=== PATIENT | female | born 1975 | race Caucasian/White ===

== ENCOUNTER 2016-06-26 11:38 | Emergency (ER) | payer BC ==
[~2016-06-26] VITALS: Ht 167.6 cm; Wt 83.9 kg
[~2016-06-26 11:38] MED LIST: DOCU10CA PO; IBUP800T23 PO; IBUP80TA PO; LABE20TAB PO; MOM30SS PO; PERC5TAB6 PO; PERCOCET PO; VITAPRTA PO
[2016-06-26] MEDS ORDERED: PROP60CA (12:00)
[2016-06-26] MEDS ORDERED: [UNRECOGNIZED DRUG - OTHER] PO (12:00)
[2016-06-26] MEDS ORDERED: GABAPENTIN 300 MG CAP PO ONE (12:30)
--- NOTE | 2016-06-26 13:25 | REP ---
RIGHT KNEE, FIVE VIEWS: HISTORY: Pain. There is no acute fracture or dislocation. The joint spaces are normal in appearance. IMPRESSION: There is no acute fracture or dislocation. Signed by Yuan Quiles MD 06/26/2016 01:30 P
[2016-06-26] MEDS ORDERED: NEUR300C PO (13:26)
[2016-06-26 13:39] VITALS: BP 119/73
== END 2016-06-26 13:46 | disposition home or self-care (01) ==
LOC: M ED 12:28
DX: M25.561 Pain in right knee (principal); G62.9 Polyneuropathy, unspecified; I10 Essential (primary) hypertension; M79.7 Fibromyalgia; Z79.899 Other long term (current) drug therapy

== ENCOUNTER → 2016-06-30 | Outpatient (REF) | payer BC ==
[~2016-06-30] MED LIST changes: +NEUR300C PO; +PROP60CA; +[UNRECOGNIZED DRUG - OTHER] PO
== END ==
LOC: M LAB REF 16:24
PROVIDERS: ATTEND Nurse Practitioner Family
DX: M79.7 Fibromyalgia (principal)

== ENCOUNTER 2016-09-13 18:21 | Emergency (ER) | payer BC ==
[~2016-09-13] VITALS: Ht 167.6 cm; Wt 84.0 kg
[~2016-09-13 18:21] MED LIST changes: +IBUP1TAB7 PO; -IBUP800T23 PO; +PERC5TAB12 PO; -PERC5TAB6 PO
[2016-09-13] MEDS ORDERED: HYDR200T3 (18:26)
[2016-09-13] MEDS ORDERED: methylPREDNISolone INJ 125 MG/2 ML VIAL (J2930) IV ONE (19:45)
[2016-09-13] MEDS ORDERED: ONDANSETRON 4MG/2ML VIAL (J2405) IV ONE (19:45)
[2016-09-13] MEDS ORDERED: MORPHINE 4 MG/ML 1ML SYRINGE IV ONE (19:45)
[2016-09-13 20:25] LABS: BASO # 0.1 K/mm3 (0.0-0.2); BASO % 0.5 % (0.0-1.0); EOS # 0.5 K/mm3 (0.0-0.50); EOS % 3.9 % (0.0-3.0); LARGE UNSTAINED CELL # 0.2 K/mm3 (0.0-0.4); LARGE UNSTAINED CELL % 1.9 % (0.0-4.0); LYMPH # 4.5 K/mm3 (1.5-4.5); MEAN CORPUSCULAR HEMOGLOBIN 30.8 pg (27.0-33.0); MEAN CORPUSCULAR HGB CONC 34.9 g/dl (32.0-36.5); MEAN CORPUSCULAR VOLUME 88.2 fl (80.0-96.0); MONO # 0.5 K/mm3 (0.0-0.8); MONO % 4.4 % (0.0-5.0); NEUTROPHILS # 6.4 K/mm3 (1.8-7.7); NEUTROPHILS % 53.3 % (36.0-66.0); PLATELET COUNT, AUTOMATED 234 k/mm3 (150-450); RED CELL DISTRIBUTION WIDTH 12.8 % (11.5-14.5)
[2016-09-13 20:38] LABS: ALBUMIN 3.8 GM/DL (3.2-5.2); ALBUMIN/GLOBULIN RATIO 1.27 (1.00-1.93); ALKALINE PHOSPHATASE 80 U/L (45-117); ALT/SGPT 16 U/L (12-78); AMYLASE 56 U/L (25-115); ANION GAP 7 MEQ/L (8-16); AST/SGOT 13 U/L (15-37); BILIRUBIN,TOTAL 0.3 MG/DL (0.2-1.0); BLOOD UREA NITROGEN 11 MG/DL (7-18); CALCIUM LEVEL 9.2 MG/DL (8.5-10.1); CARBON DIOXIDE LEVEL 25 MEQ/L (21-32); CHLORIDE LEVEL 107 MEQ/L (98-107); CREATININE FOR GFR 0.76 MG/DL (0.55-1.02); GLOMERULAR FILTRATION RATE > 60.0 (>60); GLUCOSE, FASTING 83 MG/DL (70-105); POTASSIUM SERUM 3.7 MEQ/L (3.5-5.1); SODIUM LEVEL 139 MEQ/L (136-145); TOTAL PROTEIN 6.8 GM/DL (6.4-8.2)
--- NOTE | 2016-09-13 21:20 | REPUSA ---
CLINICAL HISTORY: Epigastric pain. TECHNIQUE: Ultrasound of the abdomen was performed. ULTRASOUND ABDOMEN: Liver: No intrahepatic ductal dilation. Gallbladder: Cholecystectomy. Common bile duct: 7 mm which is within normal limits for a patient status post cholecystectomy. Pancreas: Poorly visualized due to overlying bowel gas. No pancreatic duct dilation. Spleen: Normal 10.5 cm length. Small calcified granulomas. Right kidney: 12.2 x 4.0 x 5.2 cm, with cortical thinning and mild pelviectasis. No stones or signifi cant hydronephrosis. Left kidney: 12.0 x 4.4 x 4.1 cm, with cortical thinning. No stones or hydronephrosis. Aorta: Normal caliber. Peritoneum: No free fluid. IMPRESSION: 1. Bilateral renal cortical thinning suggests chronic renal insufficiency. 2. Minimal right renal pelviectasis without suraj hydronephrosis. 3. Status post cholecystectomy, with minimal prominence of the common bile duct, within normal limits . 4. No discrete findings to explain epigastric pain.
[2016-09-13] MEDS ORDERED: NORCO, ANEXSIA 5/325MG TABLET (HYDROcodone/ACETAMINOPHEN) PO ONE (22:00)
[2016-09-13] MEDS ORDERED: MOBI15TA PO (22:04)
[2016-09-13] MEDS ORDERED: NORCOTAB PO (22:04)
[2016-09-13 22:08] VITALS: BP 133/77
--- NOTE | 2016-09-14 07:21 | REP ---
PA and lateral chest: Comparison is 12/17/2015. The lung henley are clear. The cardiac size is normal The foreign, mediastinum, and bony thorax are unremarkable. Impression: Negative PA and lateral chest. There is no interval change. Signed by Roberto Ferrera MD 09/14/2016 07:13 A
== END 2016-09-13 22:24 | disposition home or self-care (01) ==
LOC: M ED 18:21
DX: M54.9 Dorsalgia, unspecified (principal); M79.7 Fibromyalgia; M32.9 Systemic lupus erythematosus, unspecified; I10 Essential (primary) hypertension; Z79.899 Other long term (current) drug therapy
CPT/HCPCS: 71020; 76700; 80053; 81001; 82150; 83690; 85025; 86140; 87086; 96374; 96375; 99283; J2405; J2930

== ENCOUNTER 2016-09-20 13:35 | Emergency (ER) | payer BC ==
[~2016-09-20] VITALS: Ht 167.6 cm; Wt 185.0 kg
[~2016-09-20 13:35] MED LIST changes: +HYDR200T3; +MOBI15TA PO; +NORCOTAB PO
[2016-09-20] MEDS ORDERED: KETOROLAC 60 MG/2 ML VIAL (J1885) IM ONE (15:30)
[2016-09-20] MEDS ORDERED: ONDANSETRON 4 MG ORAL DISINTEGRATING TAB (S0181) PO ONE (15:30)
[2016-09-20] MEDS ORDERED: VALI5TAB PO (15:53)
[2016-09-20] MEDS ORDERED: IBUP80TA PO (15:53)
[2016-09-20 16:02] VITALS: BP 149/87
== END 2016-09-20 16:02 | disposition home or self-care (01) ==
LOC: M ED 13:35
DX: S29.012A Strain of muscle and tendon of back wall of thorax, initial encounter (principal); X58.XXXA Exposure to other specified factors, initial encounter; Y92.9 Unspecified place or not applicable; Y93.9 Activity, unspecified; Y99.8 Other external cause status; M79.7 Fibromyalgia; M32.9 Systemic lupus erythematosus, unspecified; I10 Essential (primary) hypertension; Z79.899 Other long term (current) drug therapy; Z90.79 Acquired absence of other genital organ(s); Z90.49 Acquired absence of other specified parts of digestive tract; Z90.89 Acquired absence of other organs
CPT/HCPCS: 96372; 99282; J1885; J3360

== ENCOUNTER → 2016-10-16 | Outpatient (REF) | payer BC ==
[~2016-10-16] MED LIST changes: +VALI5TAB PO
[2016-10-16 19:14] LABS: MEAN CORPUSCULAR HEMOGLOBIN 30.5 pg (27.0-33.0); MEAN CORPUSCULAR HGB CONC 34.3 g/dl (32.0-36.5); RED CELL DISTRIBUTION WIDTH 12.4 % (11.5-14.5)
[2016-10-16 20:35] LABS: ESTRADIOL 72.1 PG/ML
[2016-10-16 20:36] LABS: ALBUMIN 3.7 GM/DL (3.2-5.2); ALBUMIN/GLOBULIN RATIO 1.09 (1.00-1.93); ALKALINE PHOSPHATASE 88 U/L (45-117); ALT/SGPT 17 U/L (12-78); ANION GAP 9 MEQ/L (8-16); AST/SGOT 14 U/L (15-37); BILIRUBIN,TOTAL 0.3 MG/DL (0.2-1.0); BLOOD UREA NITROGEN 9 MG/DL (7-18); CALCIUM LEVEL 9.1 MG/DL (8.5-10.1); CARBON DIOXIDE LEVEL 26 MEQ/L (21-32); CHLORIDE LEVEL 109 MEQ/L (98-107); CREATININE FOR GFR 0.87 MG/DL (0.55-1.02); FOLLICLE STIMULATING HORMONE 6.1 mIU/mL; FREE T4 1.16 NG/DL (0.76-1.46); GLOMERULAR FILTRATION RATE > 60.0 (>60); GLUCOSE, FASTING 71 MG/DL (70-105); POTASSIUM SERUM 4.2 MEQ/L (3.5-5.1); SODIUM LEVEL 144 MEQ/L (136-145); TOTAL PROTEIN 7.1 GM/DL (6.4-8.2)
[2016-10-19 14:13] LABS: ESTRONE SERUM 85 pg/mL (.); SEX HORMONE BINDING GLOBULIN 107.9 nmol/L (24.6-122.0)
== END ==
LOC: M LAB REF 17:56
PROVIDERS: ATTEND Obstetrics & Gynecology
DX: N95.9 Unspecified menopausal and perimenopausal disorder (principal)

== ENCOUNTER → 2016-12-18 | Outpatient (REF) | payer BC | LOC: M LAB REF 13:07 | PROVIDERS: ATTEND Nurse Practitioner Family | DX: R50.9 Fever, unspecified (principal); J02.9 Acute pharyngitis, unspecified ==

== ENCOUNTER 2017-09-30 13:21 | Day surgery (SDC) | payer BC ==
[2017-09-30 13:58] LABS: BASO % 0.2 % (0.0-1.0); EOS % 0.2 % (0.0-3.0); HEMOGLOBIN 13.8 g/dl (12.0-15.5); IMMATURE GRANULOCYTE % 0.4 % (0-3.0); LYMPH # 1.7 10^3/uL (1.5-4.5); LYMPH % 10.4 % (24.0-44.0); MEAN CORPUSCULAR HEMOGLOBIN 29.7 pg (27.0-33.0); MEAN CORPUSCULAR HGB CONC 34.5 g/dl (32.0-36.5); MEAN CORPUSCULAR VOLUME 86.2 fl (80.0-96.0); MONO # 0.8 10^3/uL (0.0-0.8); MONO % 4.8 % (0.0-5.0); NEUTROPHILS # 14.1 10^3/uL (1.8-7.7); PLATELET COUNT, AUTOMATED 271 10^3/uL (150-450); RED BLOOD COUNT 4.64 10^6/uL (4.00-5.40); RED CELL DISTRIBUTION WIDTH 12.7 % (11.5-14.5); WHITE BLOOD COUNT 16.8 10^3/uL (4.0-10.0)
[2017-09-30] MEDS: MORPHINE 4 MG/ML 1ML VIAL/SYRINGE (J2270) IV ×3 (13:59→22:30)
[2017-09-30] MEDS: ONDANSETRON 4MG/2ML VIAL (J2405) IV (13:59)
[2017-09-30] MEDS: NS 1,000 ML IV (14:00)
[2017-09-30 14:16] LABS: ALBUMIN 3.9 GM/DL (3.2-5.2); ALBUMIN/GLOBULIN RATIO 1.08 (1.00-1.93); ALKALINE PHOSPHATASE 96 U/L (45-117); ALT/SGPT 24 U/L (12-78); ANION GAP 10 MEQ/L (8-16); AST/SGOT 21 U/L (7-37); BILIRUBIN,TOTAL 0.5 MG/DL (0.2-1.0); BLOOD UREA NITROGEN 12 MG/DL (7-18); CALCIUM LEVEL 8.6 MG/DL (8.5-10.1); CARBON DIOXIDE LEVEL 22 MEQ/L (21-32); CHLORIDE LEVEL 109 MEQ/L (98-107); CREATININE FOR GFR 0.79 MG/DL (0.55-1.30); GLOMERULAR FILTRATION RATE > 60.0 (>58); GLUCOSE, FASTING 67 MG/DL (70-100); SODIUM LEVEL 141 MEQ/L (136-145); TOTAL PROTEIN 7.5 GM/DL (6.4-8.2)
[2017-09-30] MEDS: D5W/0.45% SODIUM CHLORIDE 1,000 ML IV (14:37)
[2017-09-30] MEDS: LORazepam 2 MG/ML VIAL (J2060) IV (14:37)
[2017-09-30] MEDS ORDERED: LIDOCAINE 2% INJ 100 MG/5 ML SDV (FOR ANES.) As Ordered (15:45)
[2017-09-30] MEDS ORDERED: PROPOFOL 200 MG/20 ML VIAL As Ordered ×4 (15:45→18:45)
[2017-09-30] MEDS ORDERED: fentaNYL 100 MCG/2 ML INJECTION (J3010) As Ordered ×2 (15:46→18:57)
[2017-09-30] MEDS ORDERED: MIDAZOLAM INJ 2 MG/2 ML VIAL (J2250) As Ordered ×2 (15:46→18:56)
[2017-09-30] MEDS ORDERED: ceFAZolin 2 GM/D5W 50 ML IV BAG (J0690 PER 500MG) As Ordered (16:09)
[2017-09-30] MEDS: ceFAZolin 2 GM/D5W 50 ML IV BAG (J0690 PER 500MG) IV (16:16)
[2017-09-30] MEDS ORDERED: BUPIVACAINE/DEXTROSE 0.75% 2 ML AMP As Ordered (16:19)
[2017-09-30] MEDS ORDERED: ePHEDrine SULFATE 25 MG/5 ML(5MG/ML) SYRINGE As Ordered (16:46)
[2017-09-30] MEDS ORDERED: ONDANSETRON 4MG/2ML VIAL (J2405) As Ordered (18:58)
[2017-09-30] MEDS ORDERED: KETOROLAC 60 MG/2 ML VIAL (J1885) As Ordered (18:58)
[2017-09-30] MEDS ORDERED: MORPHINE 10 MG/ML 1ML VIAL (J2270) IV (20:30)
[2017-09-30] MEDS ORDERED: ONDANSETRON 4MG/2ML VIAL (J2405) IV (20:30)
[2017-09-30] MEDS ORDERED: fentaNYL 100 MCG/2 ML INJECTION (J3010) IV (20:30)
[2017-09-30] MEDS ORDERED: NORCO, ANEXSIA 5/325MG TABLET (HYDROcodone/ACETAMINOPHEN) PO (20:45)
[2017-09-30] MEDS: NORCO, ANEXSIA 5/325MG TABLET (HYDROcodone/ACETAMINOPHEN) PO (21:40)
[2017-09-30] MEDS: LR 1,000 ML IV (21:44)
[2017-10-01] MEDS: NORCO, ANEXSIA 5/325MG TABLET (HYDROcodone/ACETAMINOPHEN) PO ×5 (01:49→22:17)
[2017-10-01] MEDS: MORPHINE 4 MG/ML 1ML VIAL/SYRINGE (J2270) IV ×6 (03:27→21:09)
[2017-10-01] MEDS: LR 1,000 ML IV (03:28)
[2017-10-01] MEDS: ASPIRIN 325 MG TAB PO (08:14)
[2017-10-01] MEDS ORDERED: ASPIRIN 325 MG TAB NG (09:00)
[2017-10-01] MEDS: PROPRANOLOL 60 MG LA CAP PO (09:00)
[2017-10-01] MEDS: ESCITALOPRAM OXALATE 5MG TABLET (LEXAPRO) PO (10:25)
[2017-10-02] MEDS: MORPHINE 4 MG/ML 1ML VIAL/SYRINGE (J2270) IV (01:51)
[2017-10-02] MEDS: NORCO, ANEXSIA 5/325MG TABLET (HYDROcodone/ACETAMINOPHEN) PO ×2 (05:36→10:49)
[2017-10-02] MEDS: ESCITALOPRAM OXALATE 5MG TABLET (LEXAPRO) PO (08:57)
[2017-10-02] MEDS: ASPIRIN 325 MG TAB PO (08:57)
[2017-10-02] MEDS: PROPRANOLOL 60 MG LA CAP PO (08:58)
[2017-10-02] MEDS: MORPHINE 15 MG SA TAB PO (08:58)
== END 2017-10-02 12:35 | disposition home or self-care (01) ==
LOC: M ED 13:21 → M SDC 10-01 07:59 → M MS5PR 10-01 08:00 → M SDC 10-02 12:35 → M MS5PR 20:55
DX: S82.854A Nondisplaced trimalleolar fracture of right lower leg, initial encounter for closed fracture (principal); X50.0XXA Overexertion from strenuous movement or load, initial encounter; Y92.099 Unspecified place in other non-institutional residence as the place of occurrence of the external cause; Y93.41 Activity, dancing; Y99.8 Other external cause status; M79.7 Fibromyalgia; I10 Essential (primary) hypertension; F41.9 Anxiety disorder, unspecified; M32.10 Systemic lupus erythematosus, organ or system involvement unspecified; Z79.899 Other long term (current) drug therapy
CPT/HCPCS: 27828

== ENCOUNTER → 2017-09-30 | Outpatient (CLI) | payer BC | LOC: M WUC 11:55 | DX: S93.401A Sprain of unspecified ligament of right ankle, initial encounter (principal); S93.601A Unspecified sprain of right foot, initial encounter; W18.30XA Fall on same level, unspecified, initial encounter; Y92.009 Unspecified place in unspecified non-institutional (private) residence as the place of occurrence of the external cause | CPT/HCPCS: 73590 ==

== ENCOUNTER → 2018-04-29 | Outpatient (CLI) | payer BC ==
[~2018-04-29] MED LIST changes: +ASPI-222 PO; +ESCI10TA2 PO; +FINA15GE TOP; +HYDR-3713 PO; -HYDR200T3; +HYDR200T3 PO; +MS C15TA8 PO; -PROP60CA; +PROP60CA PO
--- NOTE | 2018-04-29 14:39 | ECGEPIP ---
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 Order Number: [id number] Reading MD: Bala Glaser Measurements Intervals [place] Rate: 67 P: 59 [place]: 175 QRS: 5 QRSD: 91 T: 31 QT: 406 QTc: 431 Interpretive Statements SINUS RHYTHM Similar to tracing done 12-17-15 at 15:43 with increased rate Electronically Signed On 04-29-2018 14:39:32 EST by Bala Glaser
== END ==
LOC: M EKG 12:49
PROVIDERS: ATTEND Orthopaedic Surgery
DX: I10 Essential (primary) hypertension (principal)

== ENCOUNTER → 2018-07-19 | Outpatient (CLI) | payer BC ==
[~2018-07-19] MED LIST changes: +HYDR-3715 PO; -NORCOTAB PO
--- NOTE | 2018-07-19 17:17 | REP ---
Clinical: Cough and fever . Comparison: 09/13/2016 . Technique: PA and lateral. Findings: The mediastinum and cardiac silhouette are normal. Very subtle left lower lobe/retrocardiac infiltrate cannot be excluded and should be correlated with physical examination and auscultation. No effusion. No pneumothorax. Skeletal structures intact. Impression: 1. Possible subtle left lower lobe/retrocardiac infiltrate. Electronically Signed by Vargas Rodriguez MD 07/19/2018 05:08 P
== END ==
LOC: M WUC 16:13
PROVIDERS: ATTEND Physician Assistant
DX: R05 Cough (principal); R50.9 Fever, unspecified

== ENCOUNTER → 2018-09-27 | Outpatient (CLI) | payer BC ==
[~2018-09-27] MED LIST changes: +PROHANCE 279.3MG/ML 15ML VIAL (A9576) As Ordered ONE; +PROHANCE 279.3MG/ML 5ML VIAL (A9576) As Ordered ONE
--- NOTE | 2018-09-27 15:45 | REP ---
MRI brain without and with IV contrast: History: Chronic headaches times 3 months. Facial pain. Comparison study: No comparison study. Technique: Axial and sagittal imaging planes are utilized for T1 and T2-weighted scans. Sequences include spin-echo, fast spin echo, FLAIR, and diffusion weighted sequences. Gadolinium enhancement dose is 18 ml of intravenous ProHance. MRI findings: No bony calvarial lesion is seen. Craniocervical junction and upper cervical cord are normal in appearance. There is no MR evidence of significant paranasal sinus disease. No intraorbital abnormality is seen. The lateral, third, and fourth ventricles are normal in size and position. Hooks-white differentiation pattern is intact above and below the tentorium. There is no evidence of intracranial hemorrhage. No mass, infarction, extra-axial fluid collection or midline shift is seen. No abnormal white matter lesion is seen. No abnormal intracranial contrast enhancement is appreciated. Enhancement is noted in normal vascular structures. Impression: Negative brain MRI study without and with contrast . Electronically Signed by Esteban Hugo MD 09/27/2018 03:36 P
== END ==
LOC: M RAD 13:22
PROVIDERS: ATTEND Psychiatry & Neurology Neurology
DX: G44.039 Episodic paroxysmal hemicrania, not intractable (principal)
CPT/HCPCS: 70553; A9576

== ENCOUNTER 2019-01-30 14:37 | Emergency (ER) | payer BC ==
[~2019-01-30] VITALS: Ht 165.1 cm; Wt 99.9 kg
[~2019-01-30 14:37] MED LIST changes: -ASPI-222 PO; +ASPI-527 PO; -PROHANCE 279.3MG/ML 15ML VIAL (A9576) As Ordered ONE; -PROHANCE 279.3MG/ML 5ML VIAL (A9576) As Ordered ONE
[2019-01-30] MEDS ORDERED: LEXA1TAB PO (14:46)
[2019-01-30] MEDS ORDERED: HYDR200T3 PO (14:46)
[2019-01-30] MEDS ORDERED: diazePAM 10 MG/2 ML INJ (J3360) IM ONE (16:00)
[2019-01-30] MEDS ORDERED: KETOROLAC 60 MG/2 ML VIAL (J1885) IM ONE (16:00)
[2019-01-30] MEDS ORDERED: IBUP-1022 PO (16:08)
[2019-01-30] MEDS ORDERED: CYCL10TA PO (16:08)
[2019-01-30 16:49] VITALS: BP 120/78
--- NOTE | 2019-01-30 18:17 | ECGEPIP ---
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
== END 2019-01-30 16:52 | disposition home or self-care (01) ==
LOC: M ED 14:37
DX: M54.9 Dorsalgia, unspecified (principal); M79.7 Fibromyalgia; I10 Essential (primary) hypertension; Z79.899 Other long term (current) drug therapy
CPT/HCPCS: 93005; 96372; 99284; J1885; J3360

== ENCOUNTER → 2019-05-16 | Outpatient (CLI) | payer BC ==
[~2019-05-16] MED LIST changes: +CYCL10TA PO; +IBUP-1022 PO; +LEXA1TAB PO
== END ==
LOC: M LABSMTC 12:47
PROVIDERS: ATTEND Family Medicine
DX: Z11.59 Encounter for screening for other viral diseases (principal); Z20.828 Contact with and (suspected) exposure to other viral communicable diseases

== ENCOUNTER → 2019-08-21 | Outpatient (CLI) | payer BC ==
[~2019-08-21] MED LIST changes: +CYCL-707 PO; -CYCL10TA PO
--- NOTE | 2019-08-22 08:36 | REP ---
MRI cervical spine: 08/21/2019. Indication: Cervical radiculopathy. Technique: Multiplanar short and long TR sequences of the cervical spine were obtained without IV Gadolinium. Comparison: None. Findings: There is straightening of the cervical lordosis. No worrisome marrow signal is present. There is a small area of abnormal elevated T2 signal within the central cord that extends from C6 to the highest level of the visualized thoracic spine without cord expansion. The craniocervical junction is unremarkable. Disc dessication is present throughout cervical spine without significant disc space narrowing. There are no focal disc herniations or significant spinal canal / neural foraminal narrowing. Mild diffuse disc bulge is present at C5/C6 with mild effacement of the ventral thecal sac. Impression: Abnormal central cord signal likely representing simple syrinx, however, gadolinium enhanced MRI of the thoracic spine and gadolinium enhanced imaging of the cervical spine is recommended for further characterization. Electronically Signed by Ming Chang DO 08/22/2019 08:26 A
--- NOTE | 2019-08-22 10:42 | REP ---
MRI LEFT SHOULDER: TECHNIQUE: Axial T2 fat sat, gradient echo, sagittal oblique T2 fat sat, coronal oblique T1, T2 fat sat. There is mild ill-defined high signal in the supraspinatus tendon and infraspinatus tendons, compatible with mild tendinopathy/tendinitis. There is focal increased signal on T2-weighted images in the undersurface of the subscapularis tendon, consistent with partial undersurface tear. There are mild hypertrophic degenerative changes of the acromioclavicular joint with a type 2 acromion. Biceps tendon is within the bicipital groove with no tenosynovitis. There is no Hill-Sachs deformity. The deltoid muscle demonstrates no abnormal signal. The biceps labral complex is intact. There is no evidence of a labral tear. No paralabral cyst is seen. A subcentimeter subcortical cyst is seen in the superolateral humeral head. There is no bone marrow edema or occult fracture. There is a normal amount of joint fluid. IMPRESSION: Partial undersurface tear subscapularis tendon. Mild tendinopathy/tendinitis supraspinatus and infraspinatus tendons. No labral tear. Mild hypertrophic degenerative changes of the acromioclavicular joint with a type 2 acromion. Electronically Signed by Roberto Hooks MD 08/22/2019 01:18 P
== END ==
LOC: M RAD 15:04
PROVIDERS: ATTEND Physician Assistant Medical
DX: M75.82 Other shoulder lesions, left shoulder (principal); M54.2 Cervicalgia

== ENCOUNTER → 2019-10-28 | Outpatient (CLI) | payer BC ==
[~2019-10-28] MED LIST changes: +BENL200I SC; +NOXI1TAB PO
[2019-10-28 15:05] LABS: BASO # 0.1 10^3/uL (0.0-0.2); BASO % 0.6 % (0.0-1.0); EOS # 0.3 10^3/uL (0.0-0.5); EOS % 3.4 % (0.0-3.0); HEMATOCRIT 41.5 % (36.0-47.0); LYMPH # 2.7 10^3/uL (1.5-5.0); LYMPH % 31.4 % (24.0-44.0); MEAN CORPUSCULAR HEMOGLOBIN 29.9 pg (27.0-33.0); MEAN CORPUSCULAR HGB CONC 33.7 g/dl (32.0-36.5); MEAN CORPUSCULAR VOLUME 88.5 fl (80.0-96.0); MONO # 0.6 10^3/uL (0.0-0.8); MONO % 7.2 % (0.0-5.0); NEUTROPHILS # 4.9 10^3/uL (1.5-8.5); NEUTROPHILS % 57.1 % (36.0-66.0); PLATELET COUNT, AUTOMATED 277 10^3/uL (150-450); RED BLOOD COUNT 4.69 10^6/uL (4.00-5.40); WHITE BLOOD COUNT 8.6 10^3/uL (4.0-10.0)
[2019-10-28 15:16] LABS: APPEARANCE, URINE CLEAR (CLEAR); BACTERIA, URINE AUTO NEGATIVE (NEGATIVE); BILIRUBIN, URINE AUTO NEGATIVE (NEGATIVE); BLOOD, URINE BLOOD NEGATIVE (NEGATIVE); COLOR, URINE YELLOW (YELLOW); GLUCOSE, URINE (UA) AUTO NEGATIVE (NEGATIVE); KETONE, URINE AUTO NEGATIVE (NEGATIVE); LEUKOCYTE ESTERASE, URINE AUTO NEGATIVE (NEGATIVE); MUCUS, URINE SMALL (NEGATIVE); NITRITE, URINE AUTO NEGATIVE (NEGATIVE); PROTEIN, URINE AUTO NEGATIVE (NEGATIVE); RBC, URINE AUTO 0 /HPF (0-3); SPECIFIC GRAVITY URINE AUTO 1.013 (1.002-1.035); SQUAMOUS EPITHELIAL CELL UR AU 0 /HPF (0-6); UROBILINOGEN, URINE AUTO 0.2 mg/dL (0.0-2.0); WBC, URINE AUTO 0 /HPF (0-3)
[2019-10-28 15:30] LABS: ERYTHROCYTE SEDIMENTATION RATE 11 mm/hr (0-20)
[2019-10-28 15:32] LABS: ALBUMIN 3.8 GM/DL (3.2-5.2); ALT/SGPT 28 U/L (12-78); BILIRUBIN,DIRECT < 0.1 MG/DL (0.0-0.2); BILIRUBIN,TOTAL 0.3 MG/DL (0.2-1.0); BLOOD UREA NITROGEN 8 MG/DL (7-18); C REACTIVE PROTEIN QUANTITATIV 0.65 MG/DL (0.00-0.30); CALCIUM LEVEL 9.2 MG/DL (8.5-10.1); CARBON DIOXIDE LEVEL 28 MEQ/L (21-32); CHLORIDE LEVEL 107 MEQ/L (98-107); COMPLEMENT C3 132 MG/DL (90-180); COMPLEMENT C4 38 MG/DL (10-40); CREATININE FOR GFR 0.96 MG/DL (0.55-1.30); GLOMERULAR FILTRATION RATE > 60.0 (>58); GLUCOSE, FASTING 76 MG/DL (70-100); POTASSIUM SERUM 3.9 MEQ/L (3.5-5.1); SODIUM LEVEL 141 MEQ/L (136-145); TOTAL PROTEIN 6.9 GM/DL (6.4-8.2)
[2019-10-31 11:11] LABS: ANTI DS-DNA AB Negative (Negative)
== END ==
LOC: M LAB 13:20
PROVIDERS: ATTEND Student in an Organized Health Care Education/Training Program
DX: M32.9 Systemic lupus erythematosus, unspecified (principal); Z79.899 Other long term (current) drug therapy

== ENCOUNTER 2020-01-08 16:11 | Emergency (ER) | payer BC ==
[~2020-01-08] VITALS: Ht 165.1 cm; Wt 105.3 kg
[~2020-01-08 16:11] MED LIST changes: -BENL200I SC; -NOXI1TAB PO
[2020-01-08] MEDS ORDERED: NOXI1TAB PO (16:21)
[2020-01-08] MEDS ORDERED: BENL200I SC (16:22)
--- NOTE | 2020-01-08 17:11 | REP ---
INDICATION: headache. COMPARISON: MRI brain 09/27/2018 TECHNIQUE: CT BRAIN PERFORMED IN THE AXIAL PLANE. CORONAL RECONSTRUCTION IMAGES ARE PERFORMED. FINDINGS: THE VENTRICLES ARE NORMAL IN SIZE AND POSITION. THERE IS NO MIDLINE SHIFT OR MASS EFFECT. MCFARLANE-WHITE DIFFERENTIATION IS WELL MAINTAINED. THERE IS NO ACUTE INTRACRANIAL HEMORRHAGE OR EXTRA-AXIAL FLUID COLLECTION. BONE WINDOW EXAMINATION IS UNREMARKABLE. VISUALIZED MASTOID AIR CELLS AND PARANASAL SINUSES ARE CLEAR. IMPRESSION: NEGATIVE NONCONTRAST CT BRAIN. <Electronically signed by Danilo Britt > 01/08/20 [id number]
[2020-01-08] MEDS ORDERED: NS 1,000 ML IV ONE (17:15)
[2020-01-08 18:17] LABS: BASO % 0.4 % (0.0-1.0); EOS # 0.3 10^3/uL (0.0-0.5); HEMATOCRIT 41.8 % (36.0-47.0); HEMOGLOBIN 13.7 g/dl (12.0-15.5); LYMPH # 3.3 10^3/uL (1.5-5.0); LYMPH % 29.3 % (24.0-44.0); MEAN CORPUSCULAR HGB CONC 32.8 g/dl (32.0-36.5); MEAN CORPUSCULAR VOLUME 88.4 fl (80.0-96.0); MONO # 0.9 10^3/uL (0.0-0.8); NEUTROPHILS # 6.7 10^3/uL (1.5-8.5); NEUTROPHILS % 58.9 % (36.0-66.0); PLATELET COUNT, AUTOMATED 297 10^3/uL (150-450); RED BLOOD COUNT 4.73 10^6/uL (4.00-5.40); WHITE BLOOD COUNT 11.4 10^3/uL (4.0-10.0)
[2020-01-08 18:48] LABS: ERYTHROCYTE SEDIMENTATION RATE 15 mm/hr (0-20)
[2020-01-08 18:49] LABS: BLOOD UREA NITROGEN 11 MG/DL (7-18); C REACTIVE PROTEIN QUANTITATIV 0.57 MG/DL (0.00-0.30); CALCIUM LEVEL 9.4 MG/DL (8.5-10.1); CARBON DIOXIDE LEVEL 26 MEQ/L (21-32); CHLORIDE LEVEL 106 MEQ/L (98-107); CREATININE FOR GFR 0.91 MG/DL (0.55-1.30); GLOMERULAR FILTRATION RATE > 60.0 (>58); GLUCOSE, FASTING 84 MG/DL (70-100); SODIUM LEVEL 139 MEQ/L (136-145)
[2020-01-08] MEDS ORDERED: KETOROLAC 30 MG/ML 1ML VIAL IV ONE (19:00)
--- NOTE | 2020-01-08 20:11 | REPVR ---
PROCEDURE INFORMATION: Exam: MR Head Without Contrast Exam date and time: 01/08/2020 7:39 PM Age: 44 years old Clinical indication: Pain; Headache; Migraine; Aura effect not specified; Does not respond to medication; With migrainosus (>72 hrs & severe); Additional info: "worse headache of life" balance issues TECHNIQUE: Imaging protocol: MR of the head without contrast. COMPARISON: MRI-Brain W/O FOLL BY WITH 09/27/2018 2:10 PM FINDINGS: Brain: Normal. No acute infarct. No hemorrhage. No significant white matter disease. No edema. Cerebral ventricles: Normal. No ventriculomegaly. Bones/joints: Unremarkable. Paranasal sinuses: Normal as visualized. No acute sinusitis. Mastoid air cells: Normal as visualized. No mastoid effusion. Orbits: Unremarkable. Soft tissues: Unremarkable. IMPRESSION: No acute findings. Electronically signed by: Alberto Lanza On 01/08/2020 20:10:30 PM
[2020-01-08] MEDS ORDERED: dexameTHASONE 4 MG/ML 1ML VIAL (J1100 PER 1MG) IV ONE (20:30)
[2020-01-08 21:30] VITALS: BP 132/82
== END 2020-01-08 21:31 | disposition home or self-care (01) ==
LOC: M ED 16:11
DX: R51.9 Headache, unspecified (principal); M32.9 Systemic lupus erythematosus, unspecified; M79.7 Fibromyalgia; Z79.899 Other long term (current) drug therapy
CPT/HCPCS: 70450; 70551; 80048; 85025; 85652; 86140; 96361; 96374; 96375; 99284; J1100; J1885

== ENCOUNTER → 2020-06-05 | Outpatient (CLI) | payer BC ==
[~2020-06-05] MED LIST changes: +BENL200I SC; +CARA1TAB6 PO; +ESCI10TA16 PO; -ESCI10TA2 PO; +NOXI1TAB PO; +ONDA4TAB6 PO; +PROT1TAB2 PO
[2020-06-05 18:07] LABS: BASO % 0.3 % (0.0-1.0); EOS # 0.2 10^3/uL (0.0-0.5); EOS % 2.6 % (0.0-3.0); HEMATOCRIT 42.8 % (36.0-47.0); HEMOGLOBIN 14.1 g/dl (12.0-15.5); LYMPH # 1.3 10^3/uL (1.5-5.0); LYMPH % 14.6 % (24.0-44.0); MEAN CORPUSCULAR HEMOGLOBIN 29.2 pg (27.0-33.0); MEAN CORPUSCULAR HGB CONC 32.9 g/dl (32.0-36.5); MEAN CORPUSCULAR VOLUME 88.6 fl (80.0-96.0); MONO # 0.8 10^3/uL (0.0-0.8); MONO % 8.6 % (2.0-8.0); NEUTROPHILS # 6.5 10^3/uL (1.5-8.5); NEUTROPHILS % 73.6 % (36.0-66.0); PLATELET COUNT, AUTOMATED 286 10^3/uL (150-450); RED BLOOD COUNT 4.83 10^6/uL (4.00-5.40); WHITE BLOOD COUNT 8.9 10^3/uL (4.0-10.0)
[2020-06-05 18:31] LABS: ALBUMIN 3.9 GM/DL (3.2-5.2); ALT/SGPT 28 U/L (12-78); BILIRUBIN,TOTAL 0.4 MG/DL (0.2-1.0); BLOOD UREA NITROGEN 10 MG/DL (7-18); CALCIUM LEVEL 9.1 MG/DL (8.5-10.1); CARBON DIOXIDE LEVEL 29 MEQ/L (21-32); CHLORIDE LEVEL 108 MEQ/L (98-107); CREATININE FOR GFR 0.89 MG/DL (0.55-1.30); GLOMERULAR FILTRATION RATE > 60.0 (>58); GLUCOSE, FASTING 89 MG/DL (70-100); LIPASE 72 U/L (73-393); POTASSIUM SERUM 4.1 MEQ/L (3.5-5.1); SODIUM LEVEL 141 MEQ/L (136-145); TOTAL PROTEIN 6.7 GM/DL (6.4-8.2)
== END ==
LOC: M LAB 17:35
PROVIDERS: ATTEND Physician Assistant
DX: R10.84 Generalized abdominal pain (principal); R50.9 Fever, unspecified; R19.7 Diarrhea, unspecified

== ENCOUNTER → 2020-06-05 | Outpatient (REF) | payer BC | LOC: M WUC 19:09 | PROVIDERS: ATTEND Physician Assistant | DX: R50.9 Fever, unspecified (principal) ==

== ENCOUNTER 2020-06-07 09:25 | Emergency (ER) | payer BC ==
[~2020-06-07] VITALS: Ht 165.1 cm; Wt 106.0 kg
[~2020-06-07 09:25] MED LIST changes: -CARA1TAB6 PO; -ONDA4TAB6 PO; -PROT1TAB2 PO
[2020-06-07 11:01] LABS: BASO # 0.1 10^3/uL (0.0-0.2); BASO % 0.7 % (0.0-1.0); EOS # 0.4 10^3/uL (0.0-0.5); EOS % 5.4 % (0.0-3.0); HEMOGLOBIN 14.4 g/dl (12.0-15.5); LYMPH # 2.5 10^3/uL (1.5-5.0); LYMPH % 34.5 % (24.0-44.0); MEAN CORPUSCULAR HEMOGLOBIN 29.1 pg (27.0-33.0); MEAN CORPUSCULAR HGB CONC 32.7 g/dl (32.0-36.5); MEAN CORPUSCULAR VOLUME 89.1 fl (80.0-96.0); MONO % 13.8 % (2.0-8.0); NEUTROPHILS # 3.3 10^3/uL (1.5-8.5); NEUTROPHILS % 45.2 % (36.0-66.0); PLATELET COUNT, AUTOMATED 305 10^3/uL (150-450); RED BLOOD COUNT 4.94 10^6/uL (4.00-5.40); WHITE BLOOD COUNT 7.3 10^3/uL (4.0-10.0)
[2020-06-07 11:11] LABS: INR 0.89; PROTHROMBIN TIME 12.2 SECONDS (12.5-14.3)
[2020-06-07 11:12] LABS: PARTIAL THROMBOPLASTIN TIME 27.6 SECONDS (24.2-38.5)
[2020-06-07 11:27] LABS: BILIRUBIN,DIRECT 0.1 MG/DL (0.0-0.2); BILIRUBIN,TOTAL 0.4 MG/DL (0.2-1.0); TOTAL PROTEIN 7.2 GM/DL (6.4-8.2)
[2020-06-07] MEDS ORDERED: ISOVUE-370 76% 100ML VIAL As Ordered ONE (12:07)
[2020-06-07] MEDS ORDERED: KETOROLAC 30 MG/ML 1ML VIAL IV ONE (12:20)
--- NOTE | 2020-06-07 12:28 | REP ---
INDICATION: periumbilical pain COMPARISON: None. TECHNIQUE: CT Scan of the abdomen and pelvis was performed with intravenous administration of 100 cc of Isovue 370, without oral contrast. Sagittal and coronal reconstruction images are performed. FINDINGS: Lung bases: Unremarkable. Liver: Normal Gallbladder: Prior cholecystectomy. Spleen: Normal. Adrenals: Normal. Pancreas: Normal. Kidneys: Normal. Small and large bowel: Unremarkable. There is no free air or obstruction. Free fluid: None. Abdominal aorta: No aneurysm or dissection. Adenopathy: None. Appendix: Prior appendectomy. Osseous structures: There are mild degenerative changes of the spine without compression deformity. Pelvis: No mass. Prior hysterectomy. IMPRESSION: No acute abnormalities detected in the abdomen and pelvis. <Electronically signed by Roberto Hooks > 06/07/20 [id number]
[2020-06-07] MEDS ORDERED: PANTOPRAZOLE 40MG TAB (PROTONIX) PO ONE (12:40)
[2020-06-07] MEDS ORDERED: PROT1TAB2 PO (13:40)
[2020-06-07] MEDS ORDERED: ONDA4TAB6 PO (13:40)
[2020-06-07] MEDS ORDERED: CARA1TAB6 PO (13:40)
[2020-06-07 13:50] VITALS: BP 118/71
== END 2020-06-07 13:58 | disposition home or self-care (01) ==
LOC: M ED 09:25
DX: R10.13 Epigastric pain (principal); I10 Essential (primary) hypertension; M79.7 Fibromyalgia; E66.9 Obesity, unspecified; Z79.899 Other long term (current) drug therapy
CPT/HCPCS: 74177; 80047; 80076; 81001; 83605; 83690; 85025; 85610; 85730; 99284; J1885; Q9967

== ENCOUNTER → 2020-06-11 | Outpatient (REF) | payer BC ==
[~2020-06-11] MED LIST changes: +CARA1TAB6 PO; +ONDA4TAB6 PO; +PROT1TAB2 PO
[2020-06-14 14:07] LABS: EBV AB TO NUCLEAR ANTIGEN >600.0 U/mL (0.0-17.9); EBV VIRAL CAPSID AG IgG >600.0 U/mL (0.0-17.9); EBV VIRAL CAPSID AG IgM <36.0 U/mL (0.0-35.9)
== END ==
LOC: M LAB REF 16:33
PROVIDERS: ATTEND Nurse Practitioner Adult Health
DX: R50.9 Fever, unspecified (principal); R53.83 Other fatigue

== ENCOUNTER → 2020-06-17 | Outpatient (REF) | payer BC ==
[2020-06-17 19:51] LABS: CHLAMYDIA DNA AMPLIFICATION NEGATIVE (NEGATIVE); GC DNA AMPLIFICATION NEGATIVE (NEGATIVE)
== END ==
LOC: M LAB REF 16:38
PROVIDERS: ATTEND Nurse Practitioner Adult Health
DX: R10.84 Generalized abdominal pain (principal)

== ENCOUNTER → 2020-06-28 | Outpatient (CLI) | payer BC ==
[~2020-06-28] MED LIST changes: +E-Z-GAS II EFFERVESCENT PACKET (SODIUM BICARB./CITRIC ACID/SIMETHICONE) As Ordered ONE; +E-Z-HD 98% w/w 340GM SUSP BTL As Ordered ONE; +E-Z-PAQUE 96% w/w SUSP 176GM BTL As Ordered ONE
--- NOTE | 2020-06-28 16:22 | REP ---
INDICATION: EPIGASTRIC PAIN, NAUSEA. COMPARISON: None TECHNIQUE: This procedure was performed by Nancy Padilla RUST, under the direct supervision of Dr. Hooks. Images were reviewed with Dr. Hooks prior to dictation. Liquid barium and gas producing crystals were given in the erect position, as well as liquid barium in the prone oblique position in order to perform a double contrast upper GI examination. Additionally liquid barium was given at the end of the examination in order to perform a small-bowel follow-through. FINDINGS: The hockey scout film shows no organomegaly or pathological masses. The intestinal gas pattern is unremarkable. The oral and pharyngeal stages of deglutition were unremarkable. Esophageal transport is prompt and efficient and there is no evidence of esophagitis, stricture, or mucosal ring. There is evidence of a hiatal hernia. Gastroesophageal reflux was visualized to the level of the james.. The stomach bailey are normally outlined. The rugal folds are smooth and regular. There is no gastritis, neoplasm, or ulcerative disease. The duodenal bailey are normally outlined. The mucosal folds are smooth and regular. There is no duodenitis, peptic ulcer disease or neoplasm. The visualized portion of the proximal small bowel appears normal in course and caliber. The barium column was followed through the small bowel to the level of the terminal ileum. Small bowel transit time is approximately for 40 minutes. During fluoroscopy gentle palpation shows all loops are freely movable and pliable. There is no fixed angulated loops. The small bowel mucosal pattern is normal in course and caliber. There is no transition to suggest a partial small bowel obstruction. Spot filming of the terminal ileum shows it to be unremarkable. IMPRESSION: 1. Hiatal hernia. 2. Gastroesophageal reflux to the level of the james. 1.4 minutes of fluoroscopy time was utilized for this procedure. Some fluoroscopic images are performed with last image hold technology. These images require no additional radiation. <Electronically signed by Nancy Padilla > 06/28/20 1612 <Electronically signed by Robetro Hooks > 06/28/20 0775
== END ==
LOC: M RAD 09:21
PROVIDERS: ATTEND Nurse Practitioner Adult Health
DX: R10.13 Epigastric pain (principal); R11.0 Nausea; K21.9 Gastro-esophageal reflux disease without esophagitis; K44.9 Diaphragmatic hernia without obstruction or gangrene

== ENCOUNTER → 2020-07-28 | Outpatient (CLI) | payer BC ==
[~2020-07-28] MED LIST changes: -E-Z-GAS II EFFERVESCENT PACKET (SODIUM BICARB./CITRIC ACID/SIMETHICONE) As Ordered ONE; -E-Z-HD 98% w/w 340GM SUSP BTL As Ordered ONE; -E-Z-PAQUE 96% w/w SUSP 176GM BTL As Ordered ONE
--- NOTE | 2020-07-28 11:22 | REP ---
INDICATION: COUGH COMPARISON: 07/19/2018 TECHNIQUE: PA and lateral. FINDINGS: The mediastinum and cardiac silhouette are normal. The lung henley are clear and without acute consolidation, effusion, or pneumothorax. The skeletal structures are intact and normal. IMPRESSION: No acute cardiopulmonary process. <Electronically signed by Vargas Rodriguez > 07/28/20 1112
== END ==
LOC: M RAD 10:55
PROVIDERS: ATTEND Nurse Practitioner Adult Health
DX: R05 Cough (principal)

== ENCOUNTER → 2020-08-27 | Outpatient (CLI) | payer BC ==
--- NOTE | 2020-08-27 14:09 | REP ---
INDICATION: GASTROPARESIS, EPIGASTRIC PAIN. COMPARISON: None. TECHNIQUE/RADIOTRACER AND DOSE: 1.05 mCi of Technetium-99m sulfur colloid was ingested in two scrambled eggs and 6 ounces of water and sequential anterior and posterior images are acquired for an 89-minute imaging observation period. Regions of interest are drawn around the stomach to plot gastric emptying. FINDINGS: Expected T1/2 is 90 minutes. Fifty% emptying is observed in this patient during the 89-minute imaging observation period, for a calculated T1/2 in this patient of 89 minutes. IMPRESSION: Normal gastric emptying. <Electronically signed by Bautista Hugo > 08/27/20 2188
== END ==
LOC: M RAD 11:54
PROVIDERS: ATTEND Internal Medicine Gastroenterology
DX: R10.13 Epigastric pain (principal); K31.84 Gastroparesis
CPT/HCPCS: 78264; A9541

== ENCOUNTER → 2020-09-15 | Outpatient (CLI) | payer BC ==
[~2020-09-15] MED LIST changes: +BENL200I
== END ==
LOC: M LABSMTC 10:43
PROVIDERS: ATTEND Anesthesiology
DX: Z01.812 Encounter for preprocedural laboratory examination (principal); Z20.822 Contact with and (suspected) exposure to COVID-19

== ENCOUNTER 2020-09-20 12:08 | Day surgery (SDC) | payer BC ==
[~2020-09-20] VITALS: Ht 162.6 cm; Wt 98.3 kg
[~2020-09-20 12:08] MED LIST changes: +NS 1,000 ML IV SCH
[2020-09-20] MEDS ORDERED: propofoL 200 MG/20 ML VIAL As Ordered ONE (13:12)
[2020-09-20] MEDS ORDERED: MIDAZOLAM INJ 2MG/2ML VIAL (J2250 PER 1MG) As Ordered ONE (13:12)
[2020-09-20] MEDS ORDERED: fentaNYL 100 MCG/2 ML INJECTION (J3010) As Ordered ONE (13:12)
--- NOTE | 2020-09-20 13:37 | ROOR ---
Patient Name: Kaitlynn Keller Procedure Date: 09/20/2020 1:19 PM Date of : 1975 Age: 44 Room: [facility] Gender: Female Note Status: Finalized Procedure: Upper GI endoscopy Indications: Abdominal pain Providers: Bala Steen MD Referring MD: Sharon Tamez NP Requesting Provider: Medicines: Monitored Anesthesia Care Complications: No immediate complications. Procedure: Pre-Anesthesia Assessment: - The heart rate, respiratory rate, oxygen saturations, blood pressure, adequacy of pulmonary ventilation, and response to care were monitored throughout the procedure. The Endoscope was introduced through the mouth, and advanced to the second part of duodenum. The upper GI endoscopy was accomplished without difficulty. The patient tolerated the procedure well. Findings: The examined esophagus was normal. Localized moderate inflammation characterized by erosions and erythema was found in the gastric antrum. Biopsies were taken with a cold forceps for histology. The exam of the stomach was otherwise normal. The examined duodenum was normal. Biopsies for histology were taken with a cold forceps for evaluation of celiac disease. Impression: - Normal esophagus. - Moderate gastritis. Biopsied. - Normal examined duodenum. Biopsied. Recommendation: - Use Prilosec (omeprazole) 40 mg PO daily. - Telephone endoscopist for pathology results in 2 weeks. Procedure Code(s): --- Professional --- 64190, Esophagogastroduodenoscopy, flexible, transoral; with biopsy, single or multiple Diagnosis Code(s): --- Professional --- R10.9, Unspecified abdominal pain K29.70, Gastritis, unspecified, without bleeding CPT copyright 2019 [employer]. All rights reserved. The codes documented in this report are preliminary and upon clothes presser review may be revised to meet current compliance requirements. Bala Steen MD Bala Steen MD 09/20/2020 1:36:35 PM Electronically signed by Bala Steen MD Number of Addenda: 0 Note Initiated On: 09/20/2020 1:19 PM Estimated Blood Loss: Estimated blood loss: none.
--- NOTE | 2020-09-20 14:00 | ROOR ---
Patient Name: Kaitlynn Keller Procedure Date: 09/20/2020 1:19 PM Date of : 1975 Age: 44 Room: [facility] Gender: Female Note Status: Finalized Procedure: Colonoscopy Indications: Generalized abdominal pain, Family history of colon cancer, Change in bowel habits Providers: Bala Steen MD Referring MD: Sharon Tamez NP Requesting Provider: Medicines: Monitored Anesthesia Care Complications: No immediate complications. Procedure: Pre-Anesthesia Assessment: - The heart rate, respiratory rate, oxygen saturations, blood pressure, adequacy of pulmonary ventilation, and response to care were monitored throughout the procedure. The Colonoscope was introduced through the anus and advanced to 10 cm into the ileum. The colonoscopy was performed without difficulty. The patient tolerated the procedure well. The quality of the bowel preparation was adequate. Findings: The perianal and digital rectal examinations were normal. A 5 mm polyp was found in the sigmoid colon. The polyp was sessile. The polyp was removed with a cold snare. Resection and retrieval were complete. Small Internal Hemorrhoids. Retroflexion in the right colon was performed. The exam was otherwise normal throughout the examined colon. The terminal ileum appeared normal. Impression: - One 5 mm polyp in the sigmoid colon, removed with a cold snare. Resected and retrieved. - Small Internal Hemorrhoids. - The colon and the examined portion of the ileum are otherwise normal. - (Irritable Bowel Syndrome/IBS suspected.) Recommendation: - Use fiber, for example Citrucel, Fibercon, Konsyl or Metamucil. - Telephone endoscopist for pathology results in 2 weeks. - Miralax 1 capful (17 grams) in 8 ounces of water PO daily indefinitely. Procedure Code(s): --- Professional --- 10767, Colonoscopy, flexible; with removal of tumor(s), polyp(s), or other lesion(s) by snare technique Diagnosis Code(s): --- Professional --- R19.4, Change in bowel habit R10.84, Generalized abdominal pain K63.5, Polyp of colon Z80.0, Family history of malignant neoplasm of digestive organs CPT copyright 2019 [employer]. All rights reserved. The codes documented in this report are preliminary and upon vending machine collector review may be revised to meet current compliance requirements. Bala Steen MD Bala Steen MD 09/20/2020 2:00:30 PM Electronically signed by Bala Steen MD Number of Addenda: 0 Note Initiated On: 09/20/2020 1:19 PM Estimated Blood Loss: Estimated blood loss: none.
[2020-09-20 14:25] VITALS: BP 127/75
== END 2020-09-20 14:37 | disposition home or self-care (01) ==
LOC: M OPP 12:08
PROVIDERS: ATTEND Internal Medicine Gastroenterology
DX: K63.5 Polyp of colon (principal); K64.8 Other hemorrhoids; Z80.0 Family history of malignant neoplasm of digestive organs; R19.4 Change in bowel habit; K29.70 Gastritis, unspecified, without bleeding; R10.9 Unspecified abdominal pain; K62.5 Hemorrhage of anus and rectum; Z79.899 Other long term (current) drug therapy; Z88.8 Allergy status to other drugs, medicaments and biological substances; Z91.048 Other nonmedicinal substance allergy status
CPT/HCPCS: 43239; 45385; 88305; J2250; J3010

== ENCOUNTER → 2020-12-29 | Outpatient (CLI) | payer BC ==
[~2020-12-29] MED LIST changes: -NS 1,000 ML IV SCH
--- NOTE | 2020-12-29 13:40 | REP ---
INDICATION: CLAVICULAR LT SIDE MASS. COMPARISON: CT chest 12/17/2015. TECHNIQUE: Real-time sonographic evaluation of left supraclavicular soft tissues performed. FINDINGS: Multiple hypoechoic nodules are seen in the left supraclavicular soft tissues most likely representing lymph nodes. The largest measure 5 x 6 x 4 mm and 8 x 7 x 8 mm. Deeper lymph nodes measure 4 x 5 mm and 3 x 3 mm. IMPRESSION: There appear to be subcentimeter lymph nodes in the region of the palpable abnormality in the left supraclavicular soft tissues. Clinical correlation and follow-up recommended. These are not enlarged by ultrasound criteria. Consider follow-up in 6 months. <Electronically signed by Roberto Hooks > 12/29/20 [id number]
== END ==
LOC: M RAD 09:50
PROVIDERS: ATTEND Nurse Practitioner Adult Health
DX: R22.1 Localized swelling, mass and lump, neck (principal)

== ENCOUNTER → 2021-01-17 | Outpatient (CLI) | payer BC ==
[~2021-01-17] MED LIST changes: +LIDOCAINE 1% MDV 20ML VIAL As Ordered ONE
[2021-01-17 13:20] VITALS: BP 141/72
== END ==
LOC: M IRPRO 11:34
PROVIDERS: ATTEND Nurse Practitioner Adult Health
DX: R22.1 Localized swelling, mass and lump, neck (principal)

== ENCOUNTER 2021-12-01 11:45 | Emergency (ER) | payer BC ==
[~2021-12-01] VITALS: Ht 162.6 cm; Wt 100.1 kg
[~2021-12-01 11:45] MED LIST changes: -LIDOCAINE 1% MDV 20ML VIAL As Ordered ONE
[2021-12-01 13:24] LABS: BASO # 0.1 10^3/uL (0.0-0.2); BASO % 0.8 % (0.0-1.0); EOS # 0.3 10^3/uL (0.0-0.5); EOS % 3.6 % (0.0-3.0); HEMATOCRIT 40.8 % (36.0-47.0); HEMOGLOBIN 13.3 g/dl (12.0-15.5); LYMPH # 2.6 10^3/uL (1.5-5.0); LYMPH % 34.5 % (24.0-44.0); MEAN CORPUSCULAR HEMOGLOBIN 28.6 pg (27.0-33.0); MEAN CORPUSCULAR HGB CONC 32.6 g/dl (32.0-36.5); MEAN CORPUSCULAR VOLUME 87.7 fl (80.0-96.0); MONO # 0.7 10^3/uL (0.0-0.8); MONO % 9.4 % (2.0-8.0); NEUTROPHILS # 3.8 10^3/uL (1.5-8.5); NEUTROPHILS % 51.2 % (36.0-66.0); PLATELET COUNT, AUTOMATED 314 10^3/uL (150-450); RED BLOOD COUNT 4.65 10^6/uL (4.00-5.40); WHITE BLOOD COUNT 7.5 10^3/uL (4.0-10.0)
[2021-12-01 13:51] LABS: CK-MB VALUE MASS < 1.0 NG/ML (<3.6); CPK CREATINE PHOSPHOKINASE 88 U/L (26-192); MB/CK RELATIVE INDEX 1.14 (< OR =4)
[2021-12-01 13:54] LABS: ALBUMIN 3.8 GM/DL (3.2-5.2); ALT/SGPT 23 U/L (12-78); BILIRUBIN,DIRECT 0.1 MG/DL (0.0-0.2); BILIRUBIN,TOTAL 0.4 MG/DL (0.2-1.0); BLOOD UREA NITROGEN 8 MG/DL (7-18); CALCIUM LEVEL 9.5 MG/DL (8.5-10.1); CARBON DIOXIDE LEVEL 27 MEQ/L (21-32); CHLORIDE LEVEL 108 MEQ/L (98-107); GLOMERULAR FILTRATION RATE > 60.0 (>58); GLUCOSE, FASTING 95 MG/DL (70-100); LIPASE 122 U/L (73-393); POTASSIUM SERUM 4.2 MEQ/L (3.5-5.1); SODIUM LEVEL 139 MEQ/L (136-145); TOTAL PROTEIN 6.9 GM/DL (6.4-8.2)
[2021-12-01] MEDS ORDERED: KETOROLAC 30 MG/ML 1ML VIAL IV ONE (15:20)
[2021-12-01] MEDS ORDERED: ISOVUE-370 76% 100ML VIAL As Ordered ONE (15:21)
[2021-12-01 15:25] VITALS: BP 146/74
[2021-12-01] MEDS ORDERED: NAPR-837 PO (17:03)
== END 2021-12-01 17:10 | disposition home or self-care (01) ==
LOC: M ED 11:45
DX: M94.0 Chondrocostal junction syndrome [Tietze] (principal); I10 Essential (primary) hypertension; M79.7 Fibromyalgia; M32.9 Systemic lupus erythematosus, unspecified; F41.9 Anxiety disorder, unspecified; Z79.899 Other long term (current) drug therapy
CPT/HCPCS: 71045; 71275; 74174; 80048; 80076; 82550; 82553; 83690; 84484; 85025; 85379; 93005; 96374; 99284; J1885; Q9967

== ENCOUNTER → 2021-12-13 | Outpatient (CLI) | payer BC ==
[~2021-12-13] MED LIST changes: +NAPR-837 PO
== END ==
LOC: M SOG 08:07
PROVIDERS: ATTEND Orthopaedic Surgery
DX: M54.6 Pain in thoracic spine (principal); M47.814 Spondylosis without myelopathy or radiculopathy, thoracic region; M25.78 Osteophyte, vertebrae

== ENCOUNTER → 2021-12-27 | Outpatient (CLI) | payer BC | LOC: M PLAIMG 06:37 | PROVIDERS: ATTEND Orthopaedic Surgery | DX: M50.221 Other cervical disc displacement at C4-C5 level (principal); M50.222 Other cervical disc displacement at C5-C6 level; M50.223 Other cervical disc displacement at C6-C7 level; M51.34 Other intervertebral disc degeneration, thoracic region ==

== ENCOUNTER → 2023-06-06 | Outpatient (CLI) | payer BC ==
[~2023-06-06] MED LIST changes: -HYDR200T3 PO; +HYDR200T46 PO
== END ==
LOC: M RAD 16:01
PROVIDERS: ATTEND Obstetrics & Gynecology
DX: R10.2 Pelvic and perineal pain (principal); Z90.710 Acquired absence of both cervix and uterus

== ENCOUNTER 2023-07-13 11:09 | Emergency (ER) | payer BC ==
[~2023-07-13] VITALS: Ht 162.6 cm; Wt 94.0 kg
[2023-07-13 11:09] VITALS: BP 138/92; TEMP 98.6; O2SAT 99
[2023-07-13 12:45] LABS: BASO # 0.1 10^3/uL (0.0-0.2); BASO % 0.7 % (0.0-1.0); EOS # 0.3 10^3/uL (0.0-0.5); EOS % 3.8 % (0.0-3.0); HEMATOCRIT 41.7 % (36.0-47.0); HEMOGLOBIN 13.9 g/dl (12.0-15.5); LYMPH # 2.5 10^3/uL (1.5-5.0); LYMPH % 33.9 % (24.0-44.0); MEAN CORPUSCULAR HEMOGLOBIN 29.7 pg (27.0-33.0); MEAN CORPUSCULAR HGB CONC 33.3 g/dl (32.0-36.5); MEAN CORPUSCULAR VOLUME 89.1 fl (80.0-96.0); MONO # 0.7 10^3/uL (0.0-0.8); MONO % 8.8 % (2.0-8.0); NEUTROPHILS # 3.9 10^3/uL (1.5-8.5); NEUTROPHILS % 52.7 % (36.0-66.0); PLATELET COUNT, AUTOMATED 295 10^3/uL (150-450); RED BLOOD COUNT 4.68 10^6/uL (4.00-5.40); WHITE BLOOD COUNT 7.4 10^3/uL (4.0-10.0)
[2023-07-13 13:08] LABS: BLOOD UREA NITROGEN 8 MG/DL (9-23); CALCIUM LEVEL 9.6 MG/DL (8.5-10.1); CARBON DIOXIDE LEVEL 28 MMOL/L (20-31); CHLORIDE LEVEL 105 MMOL/L (98-107); CREATININE FOR GFR 0.86 MG/DL (0.55-1.30); GLOMERULAR FILTRATION RATE > 60.0 (>58); GLUCOSE, FASTING 85 MG/DL (60-100); SODIUM LEVEL 140 MMOL/L (136-145)
== END 2023-07-13 14:56 | disposition home or self-care (01) ==
LOC: M ED 11:09
DX: Z01.89 Encounter for other specified special examinations (principal); I10 Essential (primary) hypertension; M32.9 Systemic lupus erythematosus, unspecified; Z87.891 Personal history of nicotine dependence; Z79.899 Other long term (current) drug therapy

== ENCOUNTER → 2023-09-27 | Outpatient (CLI) | payer BC ==
[~2023-09-27] MED LIST changes: +ONDA-282 PO; -ONDA4TAB6 PO
== END ==
LOC: M WUC 13:14
PROVIDERS: ATTEND Student in an Organized Health Care Education/Training Program
DX: M79.642 Pain in left hand (principal)

== ENCOUNTER → 2023-09-28 | Outpatient (REF) | payer BC ==
[2023-09-28 18:12] LABS: FERRITIN 24.4 NG/ML (7.3-270.7)
== END ==
LOC: M LAB REF 16:26
PROVIDERS: ATTEND Physician Assistant Medical
DX: D64.9 Anemia, unspecified (principal)

== ENCOUNTER 2023-12-07 09:32 | Outpatient (CLI) | payer OTHER ==
[~2023-12-07] VITALS: Ht 162.6 cm; Wt 90.9 kg
[2023-12-07 10:05] VITALS: BP 144/84; O2SAT 99
[2023-12-07] MEDS ORDERED: SODIUM CHLORIDE 0.9% INJ 10 ML SYR IV PRN (10:30)
[2023-12-07 10:42] LABS: BASO % 0.6 % (0.0-1.0); EOS # 0.4 10^3/uL (0.0-0.5); EOS % 5.2 % (0.0-3.0); HEMATOCRIT 40.3 % (36.0-47.0); HEMOGLOBIN 13.7 g/dl (12.0-15.5); LYMPH # 2.2 10^3/uL (1.5-5.0); LYMPH % 32.5 % (24.0-44.0); MEAN CORPUSCULAR HEMOGLOBIN 31.1 pg (27.0-33.0); MEAN CORPUSCULAR VOLUME 91.4 fl (80.0-96.0); MONO # 0.8 10^3/uL (0.0-0.8); MONO % 11.4 % (2.0-8.0); NEUTROPHILS # 3.5 10^3/uL (1.5-8.5); PLATELET COUNT, AUTOMATED 258 10^3/uL (150-450); RED BLOOD COUNT 4.41 10^6/uL (4.00-5.40); WHITE BLOOD COUNT 6.9 10^3/uL (4.0-10.0)
[2023-12-07] MEDS: diphenhydrAMINE 25MG IV PRIOR TO INFUSION IV ONE (11:13)
[2023-12-07] MEDS: ACETAMINOPHEN 650MG PO PRIOR TO INFUSION PO ONE (11:15)
[2023-12-07] MEDS: NS IV ONE (11:15)
[2023-12-07] MEDS: [UNRECOGNIZED DRUG - OTHER] IV ONE (11:15)
[2023-12-07] MEDS: SODIUM CHLORIDE 0.9% INJ 10 ML SYR IV SCH (11:16)
[2023-12-07 11:59] LABS: ALBUMIN 3.6 G/DL (3.2-5.2); ALKALINE PHOSPHATASE 85 U/L (46-116); ALT/SGPT 23 U/L (7.0-40); AST/SGOT 18 U/L (<34); BILIRUBIN,TOTAL 0.4 MG/DL (0.3-1.2); BLOOD UREA NITROGEN 15 MG/DL (9-23); CARBON DIOXIDE LEVEL 25 MMOL/L (20-31); CHLORIDE LEVEL 108 MMOL/L (98-107); GLOMERULAR FILTRATION RATE > 60.0 (>58); GLUCOSE, FASTING 82 MG/DL (60-100); POTASSIUM SERUM 4.3 MMOL/L (3.5-5.1); SODIUM LEVEL 135 MMOL/L (136-145); TOTAL PROTEIN 6.4 G/DL (5.7-8.2)
[2023-12-07 12:20] VITALS: BP 104/59; O2SAT 99
== END 2023-12-07 12:20 ==
LOC: M INFU 09:32
PROVIDERS: ATTEND Internal Medicine Rheumatology
DX: M32.9 Systemic lupus erythematosus, unspecified (principal); Z88.8 Allergy status to other drugs, medicaments and biological substances
CPT/HCPCS: 36591; 80053; 85025; 96365; 96375; J0491; J1200; J1642

== ENCOUNTER 2024-01-04 12:25 | Outpatient (CLI) | payer OTHER ==
[~2024-01-04] VITALS: Ht 162.6 cm; Wt 97.7 kg
[2024-01-04 12:25] VITALS: BP 133/80; O2SAT 100
[2024-01-04] MEDS ORDERED: NS IV ONE (12:30)
[2024-01-04] MEDS ORDERED: [UNRECOGNIZED DRUG - OTHER] IV ONE (12:30)
[2024-01-04] MEDS: ACETAMINOPHEN 650MG PO PRIOR TO INFUSION PO ONE (12:44)
[2024-01-04] MEDS: diphenhydrAMINE 25MG IV PRIOR TO INFUSION IV ONE (12:44)
[2024-01-04] MEDS ORDERED: SODIUM CHLORIDE 0.9% INJ 10 ML SYR IV PRN (12:45)
[2024-01-04] MEDS: [UNRECOGNIZED DRUG - OTHER] IV ONE (13:16)
[2024-01-04] MEDS: NS IV ONE (13:16)
[2024-01-04] MEDS: NS 25 ML IV ONE (13:54)
[2024-01-04 14:05] LABS: ALBUMIN 3.8 G/DL (3.2-5.2); ALKALINE PHOSPHATASE 85 U/L (35-104); ALT/SGPT 21 U/L (7.0-40); AST/SGOT 14 U/L (<34); BASO % 0.2 % (0.0-1.0); BILIRUBIN,TOTAL 0.6 MG/DL (0.3-1.2); BLOOD UREA NITROGEN 15 MG/DL (9-23); CALCIUM LEVEL 9.4 MG/DL (8.5-10.1); CARBON DIOXIDE LEVEL 23 MMOL/L (20-31); CHLORIDE LEVEL 108 MMOL/L (98-107); CREATININE FOR GFR 0.77 MG/DL (0.55-1.30); EOS # 0.3 10^3/uL (0.0-0.5); EOS % 3.8 % (0.0-3.0); GLOMERULAR FILTRATION RATE > 60.0 (>58); GLUCOSE, FASTING 74 MG/DL (60-100); HEMATOCRIT 43.6 % (36.0-47.0); HEMOGLOBIN 14.6 g/dl (12.0-15.5); LYMPH % 23.5 % (24.0-44.0); MEAN CORPUSCULAR HEMOGLOBIN 30.4 pg (27.0-33.0); MEAN CORPUSCULAR HGB CONC 33.5 g/dl (32.0-36.5); MEAN CORPUSCULAR VOLUME 90.6 fl (80.0-96.0); MONO # 0.9 10^3/uL (0.0-0.8); MONO % 10.8 % (2.0-8.0); NEUTROPHILS # 5.2 10^3/uL (1.5-8.5); NEUTROPHILS % 61.3 % (36.0-66.0); PLATELET COUNT, AUTOMATED 282 10^3/uL (150-450); POTASSIUM SERUM 3.8 MMOL/L (3.5-5.1); RED BLOOD COUNT 4.81 10^6/uL (4.00-5.40); SODIUM LEVEL 140 MMOL/L (136-145); TOTAL PROTEIN 7.1 G/DL (5.7-8.2); WHITE BLOOD COUNT 8.4 10^3/uL (4.0-10.0)
[2024-01-04 14:10] VITALS: O2SAT 100
[2024-01-05] MEDS ORDERED: SODIUM CHLORIDE 0.9% INJ 10 ML SYR IV SCH (09:00)
== END 2024-01-04 14:15 ==
LOC: M INFU 12:25
PROVIDERS: ATTEND Internal Medicine Rheumatology
DX: M32.9 Systemic lupus erythematosus, unspecified (principal)
CPT/HCPCS: 36591; 80053; 85025; 96361; 96365; 96375; J1200; J1642

== ENCOUNTER 2024-01-07 12:30 | Emergency (ER) | payer OTHER ==
[~2024-01-07] VITALS: Ht 162.6 cm; Wt 97.3 kg
[2024-01-07 12:42] VITALS: BP 148/97; TEMP 97.6; O2SAT 97
[2024-01-07 14:54] LABS: BASO % 0.3 % (0.0-1.0); EOS # 0.4 10^3/uL (0.0-0.5); EOS % 3.8 % (0.0-3.0); HEMATOCRIT 43.1 % (36.0-47.0); HEMOGLOBIN 14.9 g/dl (12.0-15.5); LYMPH # 2.6 10^3/uL (1.5-5.0); LYMPH % 27.2 % (24.0-44.0); MEAN CORPUSCULAR HEMOGLOBIN 30.7 pg (27.0-33.0); MEAN CORPUSCULAR HGB CONC 34.6 g/dl (32.0-36.5); MEAN CORPUSCULAR VOLUME 88.7 fl (80.0-96.0); MONO # 0.8 10^3/uL (0.0-0.8); MONO % 8.3 % (2.0-8.0); NEUTROPHILS # 5.7 10^3/uL (1.5-8.5); NEUTROPHILS % 60.2 % (36.0-66.0); PLATELET COUNT, AUTOMATED 280 10^3/uL (150-450); RED BLOOD COUNT 4.86 10^6/uL (4.00-5.40); WHITE BLOOD COUNT 9.5 10^3/uL (4.0-10.0)
[2024-01-07 15:16] LABS: LIPASE 44 U/L (12-53)
[2024-01-07 15:18] LABS: ALKALINE PHOSPHATASE 83 U/L (35-104); ALT/SGPT 20 U/L (7.0-40); AST/SGOT 13 U/L (<34); BILIRUBIN,DIRECT 0.2 MG/DL (<0.4); BILIRUBIN,TOTAL 0.6 MG/DL (0.3-1.2); BLOOD UREA NITROGEN 13 MG/DL (9-23); CALCIUM LEVEL 9.7 MG/DL (8.5-10.1); CARBON DIOXIDE LEVEL 26 MMOL/L (20-31); CHLORIDE LEVEL 107 MMOL/L (98-107); CREATININE FOR GFR 0.83 MG/DL (0.55-1.30); GLOMERULAR FILTRATION RATE > 60.0 (>58); GLUCOSE, FASTING 79 MG/DL (60-100); POTASSIUM SERUM 4.3 MMOL/L (3.5-5.1); SODIUM LEVEL 138 MMOL/L (136-145); TOTAL PROTEIN 7.3 G/DL (5.7-8.2)
[2024-01-07 16:22] LABS: HCG, SERUM QUALITATIVE NEGATIVE (NEGATIVE)
[2024-01-07] MEDS ORDERED: ISOVUE-370 76% 100ML VIAL As Ordered ONE (16:37)
[2024-01-07] MEDS: FAMOTIDINE 20MG/2ML VIAL IVP ONE (16:49)
[2024-01-07] MEDS: PANTOPRAZOLE 40MG VIAL IV ONE (16:49)
[2024-01-07] MEDS: ACETAMINOPHEN *IV* 1,000 MG in IV 1 EA IV ONE (16:49)
[2024-01-07] MEDS ORDERED: PROT1TAB2 PO (18:24)
[2024-01-07] MEDS ORDERED: PEPC1TAB5 PO (18:24)
[2024-01-07] MEDS ORDERED: BACT800T5 PO (18:24)
== END 2024-01-07 19:17 | disposition home or self-care (01) ==
LOC: M ED 12:30
DX: K29.70 Gastritis, unspecified, without bleeding (principal); N30.00 Acute cystitis without hematuria; I10 Essential (primary) hypertension; M32.9 Systemic lupus erythematosus, unspecified; M79.7 Fibromyalgia; F17.200 Nicotine dependence, unspecified, uncomplicated; Z79.899 Other long term (current) drug therapy
CPT/HCPCS: 74177; 80048; 80076; 81001; 83690; 84703; 85025; 96374; 96375; 99283; J0131; J2470; Q9967; S0028

== ENCOUNTER 2024-02-01 13:00 | Outpatient (CLI) | payer OTHER ==
[~2024-02-01] VITALS: Ht 162.6 cm; Wt 90.0 kg
[2024-02-01 13:00] VITALS: BP 119/78; O2SAT 100
[~2024-02-01 13:00] MED LIST changes: +BACT800T5 PO; +PEPC1TAB5 PO
[2024-02-01] MEDS: ACETAMINOPHEN 650MG PO PRIOR TO INFUSION PO ONE (13:16)
[2024-02-01] MEDS: diphenhydrAMINE 25MG IV PRIOR TO INFUSION IV ONE (13:16)
[2024-02-01] MEDS: [UNRECOGNIZED DRUG - OTHER] IV ONE (13:35)
[2024-02-01] MEDS: NS IV ONE (13:35)
[2024-02-01 13:39] LABS: BASO % 0.5 % (0.0-1.0); EOS # 0.4 10^3/uL (0.0-0.5); EOS % 4.5 % (0.0-3.0); HEMATOCRIT 39.1 % (36.0-47.0); HEMOGLOBIN 13.6 g/dl (12.0-15.5); LYMPH # 2.5 10^3/uL (1.5-5.0); LYMPH % 31.4 % (24.0-44.0); MEAN CORPUSCULAR HEMOGLOBIN 31.2 pg (27.0-33.0); MEAN CORPUSCULAR HGB CONC 34.8 g/dl (32.0-36.5); MEAN CORPUSCULAR VOLUME 89.7 fl (80.0-96.0); MONO # 0.7 10^3/uL (0.0-0.8); MONO % 8.7 % (2.0-8.0); NEUTROPHILS # 4.4 10^3/uL (1.5-8.5); NEUTROPHILS % 54.7 % (36.0-66.0); PLATELET COUNT, AUTOMATED 246 10^3/uL (150-450); RED BLOOD COUNT 4.36 10^6/uL (4.00-5.40); WHITE BLOOD COUNT 8.1 10^3/uL (4.0-10.0)
[2024-02-01] MEDS: SODIUM CHLORIDE 0.9% INJ 10 ML SYR IV SCH (14:22)
[2024-02-01 14:23] VITALS: BP 136/84; O2SAT 97
[2024-02-01 14:57] LABS: ALBUMIN 3.6 G/DL (3.2-5.2); ALKALINE PHOSPHATASE 87 U/L (35-104); ALT/SGPT 17 U/L (7.0-40); AST/SGOT 18 U/L (<34); BILIRUBIN,TOTAL 0.5 MG/DL (0.3-1.2); BLOOD UREA NITROGEN 12 MG/DL (9-23); CALCIUM LEVEL 9.3 MG/DL (8.5-10.1); CARBON DIOXIDE LEVEL 22 MMOL/L (20-31); CHLORIDE LEVEL 107 MMOL/L (98-107); CREATININE FOR GFR 0.76 MG/DL (0.55-1.30); GLOMERULAR FILTRATION RATE > 60.0 (>58); GLUCOSE, FASTING 101 MG/DL (60-100); POTASSIUM SERUM 3.8 MMOL/L (3.5-5.1); SODIUM LEVEL 139 MMOL/L (136-145); TOTAL PROTEIN 6.7 G/DL (5.7-8.2)
== END 2024-02-01 14:24 ==
LOC: M INFU 13:00
PROVIDERS: ATTEND Internal Medicine Rheumatology
DX: M32.9 Systemic lupus erythematosus, unspecified (principal)
CPT/HCPCS: 36591; 80053; 85025; 96365; J1200; J1642

== ENCOUNTER 2024-02-29 12:51 | Outpatient (CLI) | payer OTHER ==
[~2024-02-29] VITALS: Ht 162.6 cm; Wt 90.9 kg
[~2024-02-29 12:51] MED LIST changes: +SODIUM CHLORIDE 0.9% INJ 10 ML SYR IV PRN
[2024-02-29 13:00] VITALS: BP 120/77; TEMP 97.3; O2SAT 99
[2024-02-29] MEDS: ACETAMINOPHEN 650MG PO PRIOR TO INFUSION PO ONE (13:14)
[2024-02-29] MEDS: diphenhydrAMINE 25MG IV PRIOR TO INFUSION IV ONE (13:14)
[2024-02-29] MEDS: [UNRECOGNIZED DRUG - OTHER] IV ONE (13:33)
[2024-02-29] MEDS: NS IV ONE (13:33)
[2024-02-29] MEDS: SODIUM CHLORIDE 0.9% INJ 10 ML SYR IV SCH (13:34)
[2024-02-29 13:40] LABS: BASO % 0.4 % (0.0-1.0); EOS # 0.3 10^3/uL (0.0-0.5); HEMATOCRIT 39.4 % (36.0-47.0); HEMOGLOBIN 13.3 g/dl (12.0-15.5); LYMPH # 2.3 10^3/uL (1.5-5.0); LYMPH % 32.9 % (24.0-44.0); MEAN CORPUSCULAR HEMOGLOBIN 30.2 pg (27.0-33.0); MEAN CORPUSCULAR HGB CONC 33.8 g/dl (32.0-36.5); MEAN CORPUSCULAR VOLUME 89.5 fl (80.0-96.0); MONO # 0.6 10^3/uL (0.0-0.8); MONO % 8.3 % (2.0-8.0); NEUTROPHILS # 3.8 10^3/uL (1.5-8.5); NEUTROPHILS % 54.1 % (36.0-66.0); PLATELET COUNT, AUTOMATED 242 10^3/uL (150-450)
[2024-02-29 14:03] LABS: ALBUMIN 3.4 G/DL (3.2-5.2); ALKALINE PHOSPHATASE 83 U/L (35-104); ALT/SGPT 13 U/L (7.0-40); AST/SGOT 14 U/L (<34); BILIRUBIN,TOTAL 0.4 MG/DL (0.3-1.2); BLOOD UREA NITROGEN 13 MG/DL (9-23); CALCIUM LEVEL 9.1 MG/DL (8.5-10.1); CARBON DIOXIDE LEVEL 26 MMOL/L (20-31); CHLORIDE LEVEL 108 MMOL/L (98-107); GLOMERULAR FILTRATION RATE > 60.0 (>58); GLUCOSE, FASTING 105 MG/DL (60-100); POTASSIUM SERUM 3.7 MMOL/L (3.5-5.1); SODIUM LEVEL 142 MMOL/L (136-145); TOTAL PROTEIN 6.1 G/DL (5.7-8.2)
== END 2024-02-29 14:15 ==
LOC: M INFU 12:51
PROVIDERS: ATTEND Internal Medicine Rheumatology
DX: M32.9 Systemic lupus erythematosus, unspecified (principal)
CPT/HCPCS: 36591; 80053; 85025; 96365; 96375; J1200; J1642

== ENCOUNTER 2024-03-28 11:30 | Outpatient (CLI) | payer OTHER ==
[~2024-03-28] VITALS: Ht 162.6 cm; Wt 90.0 kg
[2024-03-28 11:50] VITALS: BP 113/77; O2SAT 100
[2024-03-28] MEDS: diphenhydrAMINE 50MG/ML VIAL IV ONE (12:22)
[2024-03-28] MEDS: ACETAMINOPHEN 325 MG TAB PO ONE (12:22)
[2024-03-28 12:32] LABS: BASO % 0.4 % (0.0-1.0); EOS # 0.5 10^3/uL (0.0-0.5); EOS % 6.4 % (0.0-3.0); HEMATOCRIT 41.4 % (36.0-47.0); HEMOGLOBIN 14.4 g/dl (12.0-15.5); LYMPH # 2.4 10^3/uL (1.5-5.0); LYMPH % 32.5 % (24.0-44.0); MEAN CORPUSCULAR HEMOGLOBIN 30.6 pg (27.0-33.0); MEAN CORPUSCULAR HGB CONC 34.8 g/dl (32.0-36.5); MEAN CORPUSCULAR VOLUME 88.1 fl (80.0-96.0); MONO # 0.9 10^3/uL (0.0-0.8); MONO % 12.5 % (2.0-8.0); NEUTROPHILS # 3.5 10^3/uL (1.5-8.5); NEUTROPHILS % 48.1 % (36.0-66.0); PLATELET COUNT, AUTOMATED 235 10^3/uL (150-450); WHITE BLOOD COUNT 7.3 10^3/uL (4.0-10.0)
[2024-03-28] MEDS: [UNRECOGNIZED DRUG - OTHER] IV ONE (12:46)
[2024-03-28] MEDS: NS IV ONE (12:46)
[2024-03-28] MEDS: SODIUM CHLORIDE 0.9% INJ 10 ML SYR IV SCH (12:50)
[2024-03-28 13:01] LABS: ALBUMIN 3.7 G/DL (3.2-5.2); ALKALINE PHOSPHATASE 90 U/L (35-104); ALT/SGPT 16 U/L (7.0-40); AST/SGOT 17 U/L (<34); BILIRUBIN,TOTAL 0.4 MG/DL (0.3-1.2); BLOOD UREA NITROGEN 12 MG/DL (9-23); CALCIUM LEVEL 8.7 MG/DL (8.5-10.1); CARBON DIOXIDE LEVEL 25 MMOL/L (20-31); CHLORIDE LEVEL 106 MMOL/L (98-107); CREATININE FOR GFR 0.72 MG/DL (0.55-1.30); GLOMERULAR FILTRATION RATE > 60.0 (>58); GLUCOSE, FASTING 89 MG/DL (60-100); POTASSIUM SERUM 4.2 MMOL/L (3.5-5.1); SODIUM LEVEL 139 MMOL/L (136-145); TOTAL PROTEIN 6.7 G/DL (5.7-8.2)
[2024-03-28 13:32] VITALS: BP 111/80; O2SAT 100
== END 2024-03-28 13:30 ==
LOC: M INFU 11:30
PROVIDERS: ATTEND Internal Medicine Rheumatology
DX: M32.9 Systemic lupus erythematosus, unspecified (principal)
CPT/HCPCS: 80053; 85025; 96365; 96375; J1200; J1642

== ENCOUNTER → 2024-03-28 | Outpatient (CLI) | payer OTHER ==
[~2024-03-28] MED LIST changes: -SODIUM CHLORIDE 0.9% INJ 10 ML SYR IV PRN
[2024-03-28 13:30] LABS: FOLLICLE STIMULATING HORMONE 10.5 mIU/ML
[2024-03-28 13:31] LABS: LUTEINIZING HORMONE 4.4 mIU/ML
[2024-03-28 13:32] LABS: ESTRADIOL 61.5 PG/ML
[2024-03-31 07:10] LABS: PROGESTERONE 0.42 NG/ML
== END ==
LOC: M LAB 11:32
PROVIDERS: ATTEND Obstetrics & Gynecology
DX: N95.1 Menopausal and female climacteric states (principal)

== ENCOUNTER 2024-04-25 12:55 | Outpatient (CLI) | payer OTHER ==
[~2024-04-25] VITALS: Ht 162.6 cm; Wt 90.9 kg
[2024-04-25 13:00] VITALS: BP 115/76; O2SAT 99
[2024-04-25] MEDS: ACETAMINOPHEN 325 MG TAB PO ONE (13:02)
[2024-04-25] MEDS: diphenhydrAMINE 50MG/ML VIAL IV ONE (13:02)
[2024-04-25] MEDS: SODIUM CHLORIDE 0.9% INJ 10 ML SYR IV SCH (13:03)
[2024-04-25] MEDS: [UNRECOGNIZED DRUG - OTHER] IV ONE (13:32)
[2024-04-25] MEDS: NS IV ONE (13:32)
[2024-04-25 13:33] LABS: BASO # 0.1 10^3/uL (0.0-0.2); BASO % 0.7 % (0.0-1.0); EOS # 0.3 10^3/uL (0.0-0.5); EOS % 3.6 % (0.0-3.0); HEMATOCRIT 39.4 % (36.0-47.0); HEMOGLOBIN 13.3 g/dl (12.0-15.5); LYMPH # 2.8 10^3/uL (1.5-5.0); LYMPH % 32.1 % (24.0-44.0); MEAN CORPUSCULAR HEMOGLOBIN 29.9 pg (27.0-33.0); MEAN CORPUSCULAR HGB CONC 33.8 g/dl (32.0-36.5); MEAN CORPUSCULAR VOLUME 88.5 fl (80.0-96.0); MONO # 0.7 10^3/uL (0.0-0.8); NEUTROPHILS # 4.8 10^3/uL (1.5-8.5); NEUTROPHILS % 55.4 % (36.0-66.0); PLATELET COUNT, AUTOMATED 260 10^3/uL (150-450); RED BLOOD COUNT 4.45 10^6/uL (4.00-5.40); WHITE BLOOD COUNT 8.6 10^3/uL (4.0-10.0)
[2024-04-25 13:54] LABS: ALBUMIN 3.6 G/DL (3.2-5.2); ALKALINE PHOSPHATASE 84 U/L (35-104); ALT/SGPT 17 U/L (7.0-40); AST/SGOT 17 U/L (<34); BILIRUBIN,TOTAL 0.5 MG/DL (0.3-1.2); BLOOD UREA NITROGEN 9 MG/DL (9-23); CALCIUM LEVEL 8.8 MG/DL (8.5-10.1); CARBON DIOXIDE LEVEL 24 MMOL/L (20-31); CHLORIDE LEVEL 107 MMOL/L (98-107); CREATININE FOR GFR 0.74 MG/DL (0.55-1.30); GLOMERULAR FILTRATION RATE > 60.0 (>58); GLUCOSE, FASTING 96 MG/DL (60-100); POTASSIUM SERUM 4.1 MMOL/L (3.5-5.1); SODIUM LEVEL 140 MMOL/L (136-145); TOTAL PROTEIN 6.6 G/DL (5.7-8.2)
[2024-04-25 14:15] VITALS: BP 128/78; O2SAT 99
== END 2024-04-25 14:15 ==
LOC: M INFU 12:55
PROVIDERS: ATTEND Internal Medicine Rheumatology
DX: M32.9 Systemic lupus erythematosus, unspecified (principal); Z88.8 Allergy status to other drugs, medicaments and biological substances
CPT/HCPCS: 36591; 80053; 85025; 96365; 96375; J1200; J1642

== ENCOUNTER 2024-05-23 13:05 | Outpatient (CLI) | payer OTHER ==
[~2024-05-23] VITALS: Ht 162.6 cm; Wt 88.6 kg
[2024-05-23 13:20] VITALS: BP 114/67; O2SAT 99
[2024-05-23] MEDS: ACETAMINOPHEN 650 MG PO ONE (13:27)
[2024-05-23] MEDS: diphenhydrAMINE 50MG/ML VIAL IV ONE (13:27)
[2024-05-23 13:40] LABS: BASO % 0.4 % (0.0-1.0); EOS # 0.4 10^3/uL (0.0-0.5); EOS % 4.7 % (0.0-3.0); HEMATOCRIT 40.2 % (36.0-47.0); HEMOGLOBIN 13.6 g/dl (12.0-15.5); LYMPH # 2.8 10^3/uL (1.5-5.0); LYMPH % 36.9 % (24.0-44.0); MEAN CORPUSCULAR HEMOGLOBIN 29.8 pg (27.0-33.0); MEAN CORPUSCULAR HGB CONC 33.8 g/dl (32.0-36.5); MEAN CORPUSCULAR VOLUME 88.2 fl (80.0-96.0); MONO # 0.6 10^3/uL (0.0-0.8); MONO % 8.4 % (2.0-8.0); NEUTROPHILS # 3.7 10^3/uL (1.5-8.5); NEUTROPHILS % 49.3 % (36.0-66.0); PLATELET COUNT, AUTOMATED 280 10^3/uL (150-450); RED BLOOD COUNT 4.56 10^6/uL (4.00-5.40); WHITE BLOOD COUNT 7.5 10^3/uL (4.0-10.0)
[2024-05-23 13:59] LABS: ALBUMIN 3.7 G/DL (3.2-5.2); ALKALINE PHOSPHATASE 93 U/L (35-104); ALT/SGPT 17 U/L (7.0-40); AST/SGOT 17 U/L (<34); BILIRUBIN,TOTAL 0.5 MG/DL (0.3-1.2); BLOOD UREA NITROGEN 13 MG/DL (9-23); CARBON DIOXIDE LEVEL 26 MMOL/L (20-31); CHLORIDE LEVEL 104 MMOL/L (98-107); CREATININE FOR GFR 0.73 MG/DL (0.55-1.30); GLOMERULAR FILTRATION RATE > 60.0 (>58); GLUCOSE, FASTING 95 MG/DL (60-100); POTASSIUM SERUM 3.6 MMOL/L (3.5-5.1); SODIUM LEVEL 139 MMOL/L (136-145); TOTAL PROTEIN 6.3 G/DL (5.7-8.2)
[2024-05-23] MEDS: NS IV ONE (14:04)
[2024-05-23] MEDS: [UNRECOGNIZED DRUG - OTHER] IV ONE (14:04)
[2024-05-23] MEDS: SODIUM CHLORIDE 0.9% INJ 10 ML SYR IV SCH (14:06)
[2024-05-23 14:39] VITALS: BP 121/75; O2SAT 99
== END 2024-05-23 14:40 ==
LOC: M INFU 13:05
PROVIDERS: ATTEND Internal Medicine Rheumatology
DX: M32.9 Systemic lupus erythematosus, unspecified (principal)
CPT/HCPCS: 36591; 80053; 85025; 96365; 96375; J1200; J1642

== ENCOUNTER 2024-06-23 15:31 | Outpatient (CLI) | payer OTHER ==
[~2024-06-23] VITALS: Ht 162.6 cm; Wt 87.7 kg
[~2024-06-23 15:31] MED LIST changes: +ANIF300V IV; +SEMA1PEN4 SQ; +SODIUM CHLORIDE 0.9% INJ 10 ML SYR IV PRN; +VITA100093 PO
[2024-06-23 15:40] VITALS: BP 157/88; O2SAT 98
[2024-06-23] MEDS: diphenhydrAMINE 25MG IV PRIOR TO INFUSION IV ONE (15:46)
[2024-06-23] MEDS: ACETAMINOPHEN 650MG PO PRIOR TO INFUSION PO ONE (15:46)
[2024-06-23] MEDS: SODIUM CHLORIDE 0.9% INJ 10 ML SYR IV SCH (15:47)
[2024-06-23] MEDS: NS IV ONE (16:13)
[2024-06-23] MEDS: [UNRECOGNIZED DRUG - OTHER] IV ONE (16:13)
[2024-06-23 16:22] LABS: BASO # 0.1 10^3/uL (0.0-0.2); BASO % 0.6 % (0.0-1.0); EOS # 0.3 10^3/uL (0.0-0.5); HEMATOCRIT 39.8 % (36.0-47.0); HEMOGLOBIN 13.4 g/dl (12.0-15.5); LYMPH # 3.2 10^3/uL (1.5-5.0); LYMPH % 38.2 % (24.0-44.0); MEAN CORPUSCULAR HEMOGLOBIN 29.5 pg (27.0-33.0); MEAN CORPUSCULAR HGB CONC 33.7 g/dl (32.0-36.5); MEAN CORPUSCULAR VOLUME 87.7 fl (80.0-96.0); MONO # 0.8 10^3/uL (0.0-0.8); MONO % 10.1 % (2.0-8.0); NEUTROPHILS % 47.7 % (36.0-66.0); PLATELET COUNT, AUTOMATED 272 10^3/uL (150-450); RED BLOOD COUNT 4.54 10^6/uL (4.00-5.40); WHITE BLOOD COUNT 8.3 10^3/uL (4.0-10.0)
[2024-06-23 16:44] LABS: ALBUMIN 3.7 G/DL (3.2-5.2); ALKALINE PHOSPHATASE 78 U/L (35-104); ALT/SGPT 23 U/L (7.0-40); AST/SGOT 25 U/L (<34); BILIRUBIN,TOTAL 0.5 MG/DL (0.3-1.2); BLOOD UREA NITROGEN 13 MG/DL (9-23); CALCIUM LEVEL 9.3 MG/DL (8.5-10.1); CARBON DIOXIDE LEVEL 23 MMOL/L (20-31); CHLORIDE LEVEL 108 MMOL/L (98-107); CREATININE FOR GFR 0.73 MG/DL (0.55-1.30); GLOMERULAR FILTRATION RATE > 90.0 (>58); GLUCOSE, FASTING 88 MG/DL (60-100); POTASSIUM SERUM 4.1 MMOL/L (3.5-5.1); SODIUM LEVEL 139 MMOL/L (136-145); TOTAL PROTEIN 6.5 G/DL (5.7-8.2)
[2024-06-23 16:49] VITALS: BP 144/76; O2SAT 99
== END 2024-06-23 16:50 | disposition home or self-care (01) ==
LOC: M INFU 15:31
PROVIDERS: ATTEND Internal Medicine Rheumatology
DX: M32.9 Systemic lupus erythematosus, unspecified (principal); Z91.89 Other specified personal risk factors, not elsewhere classified
CPT/HCPCS: 80053; 85025; 96365; 96375; J1200; J1642

== ENCOUNTER → 2024-06-25 | Outpatient (REF) | payer OTHER ==
[~2024-06-25] MED LIST changes: -SODIUM CHLORIDE 0.9% INJ 10 ML SYR IV PRN
[2024-06-25 18:28] LABS: C REACTIVE PROTEIN QUANTITATIV < 0.50 MG/DL (<1.0); RHEUMATOID FACTOR QUANT < 3.5 IU/ML (<14)
[2024-06-25 18:29] LABS: URIC ACID 6.1 MG/DL (3.1-7.8)
[2024-06-30 17:28] LABS: ANA SCREEN, IFA POSITIVE (NEGATIVE)
== END ==
LOC: M LAB REF 17:40
PROVIDERS: ATTEND Internal Medicine
DX: M32.9 Systemic lupus erythematosus, unspecified (principal)

== ENCOUNTER 2024-07-02 11:49 | Day surgery (SDC) | payer OTHER ==
[~2024-07-02] VITALS: Ht 162.6 cm; Wt 87.9 kg
[2024-07-02 12:29] LABS: HEMATOCRIT 42.9 % (36.0-47.0); HEMOGLOBIN 14.3 g/dl (12.0-15.5); MEAN CORPUSCULAR HEMOGLOBIN 29.7 pg (27.0-33.0); MEAN CORPUSCULAR HGB CONC 33.3 g/dl (32.0-36.5); PLATELET COUNT, AUTOMATED 286 10^3/uL (150-450); RED BLOOD COUNT 4.82 10^6/uL (4.00-5.40); WHITE BLOOD COUNT 7.7 10^3/uL (4.0-10.0)
[2024-07-02] MEDS ORDERED: LR 1,000 ML IV SCH ×2 (13:25→18:50)
[2024-07-02] MEDS ORDERED: METHYLENE BLUE 0.5% (5MG/ML) 10 ML AMP (PROVAYBLUE) As Ordered ONE (17:11)
[2024-07-02] MEDS ORDERED: ONDANSETRON 4MG 2ML VIAL As Ordered ONE (17:23)
[2024-07-02] MEDS ORDERED: LIDOCAINE 2% 100MG/5ML SDV (FOR ANES.) As Ordered ONE (17:23)
[2024-07-02] MEDS ORDERED: dexmedeTOMIDine (4MCG/ML)200MCG/50ML BTL (PRECEDEX) As Ordered ONE (17:23)
[2024-07-02] MEDS ORDERED: MIDAZOLAM INJ 2MG/2ML VIAL As Ordered ONE (17:23)
[2024-07-02] MEDS ORDERED: ROCURONIUM BROMIDE 50MG/5ML VIAL As Ordered ONE (17:23)
[2024-07-02] MEDS ORDERED: propofoL 200 MG/20 ML VIAL As Ordered ONE (17:23)
[2024-07-02] MEDS ORDERED: fentaNYL 100 MCG/2 ML INJECTION As Ordered ONE (17:24)
[2024-07-02] MEDS ORDERED: SUGAMMADEX SODIUM 500 MG/5 ML VIAL (BRIDION) As Ordered ONE (18:05)
[2024-07-02] MEDS ORDERED: ACETAMINOPHEN 1000MG/100ML IV BAG As Ordered ONE (18:05)
[2024-07-02] MEDS ORDERED: KETOROLAC 30 MG/ML 1ML VIAL As Ordered ONE (18:06)
[2024-07-02] MEDS ORDERED: PHENYLephrine 500MCG 5ML (100MCG/ML) SYRINGE As Ordered ONE (18:07)
[2024-07-02] MEDS ORDERED: HYDROmorphone HCL 2MG/ML 1ML VIAL As Ordered ONE (18:23)
[2024-07-02] MEDS ORDERED: fentaNYL 100 MCG/2 ML INJECTION IV PRN (18:50)
[2024-07-02] MEDS ORDERED: ONDANSETRON 4MG 2ML VIAL IV PRN (18:50)
[2024-07-02] MEDS ORDERED: HYDROMORPHONE HCL 0.5 MG/ 0.5 ML SYRINGE IV PRN (18:50)
[2024-07-02] MEDS ORDERED: PERC5TAB12 PO (19:08)
[2024-07-02] MEDS: oxyCODONE 5MG TAB PO PRN (19:28)
[2024-07-02] MEDS ORDERED: PERCOCET 5MG/325MG TAB PO PRN (19:40)
[2024-07-02 21:10] VITALS: BP 143/82; TEMP 97.3; O2SAT 100
[2024-07-03] MEDS ORDERED: IBUPROFEN 800 MG TAB PO SCH
[2024-07-03] MEDS ORDERED: SIMETHICONE 80MG CHEW TAB PO SCH
== END 2024-07-02 21:15 | disposition home or self-care (01) ==
LOC: M SDC 11:49
PROVIDERS: ATTEND Obstetrics & Gynecology
DX: R10.2 Pelvic and perineal pain (principal); N83.291 Other ovarian cyst, right side; N73.6 Female pelvic peritoneal adhesions (postinfective); Z80.41 Family history of malignant neoplasm of ovary; I10 Essential (primary) hypertension; K21.9 Gastro-esophageal reflux disease without esophagitis; M79.7 Fibromyalgia; F41.1 Generalized anxiety disorder; M32.9 Systemic lupus erythematosus, unspecified; Z79.899 Other long term (current) drug therapy
CPT/HCPCS: 36415; 49329; 58661; 85027; 86850; 86900; 86901; 88305; 93005; J0131; J0665; J1100; J1171; J1885; J2250; J2371; J2405; J3010; Q9968

== ENCOUNTER → 2024-09-01 | Outpatient (CLI) | payer OTHER ==
[~2024-09-01] VITALS: Ht 160 cm; Wt 87.7 kg
[~2024-09-01] MED LIST changes: +HEPARIN LOCK FLUSH 100 UNITS/ML 3 ML SYRINGE IV PRN; +HEPARIN LOCK FLUSH 100 UNITS/ML 3 ML SYRINGE IV SCH; +SODIUM CHLORIDE 0.9% INJ 10 ML SYR IV PRN; +SODIUM CHLORIDE 0.9% INJ 10 ML SYR IV SCH
[2024-09-01] MEDS: diphenhydrAMINE 50 MG/ML VIAL IV ONE (15:44)
[2024-09-01] MEDS: ACETAMINOPHEN 325 MG TAB PO ONE (15:44)
[2024-09-01 15:55] VITALS: BP 133/87; O2SAT 98
[2024-09-01 16:05] LABS: BASO # 0.0 10^3/uL (0.0-0.2); BASO % 0.4 % (0.0-1.0); EOS # 0.5 10^3/uL (0.0-0.5); EOS % 5.1 % (0.0-3.0); LYMPH # 1.9 10^3/uL (1.5-5.0); LYMPH % 19.9 % (24.0-44.0); MONO # 0.7 10^3/uL (0.0-0.8); MONO % 7.9 % (2.0-8.0); NEUTROPHILS # 6.2 10^3/uL (1.5-8.5); NEUTROPHILS % 66.5 % (36.0-66.0); PLATELET COUNT, AUTOMATED 221 10^3/uL (150-450)
[2024-09-01] MEDS: [UNRECOGNIZED DRUG - OTHER] IV ONE (16:23)
[2024-09-01] MEDS: NS IV ONE (16:23)
[2024-09-01 16:32] LABS: ALT/SGPT 14 U/L (7.0-40); AST/SGOT 19 U/L (<34); CALCIUM LEVEL 9.0 MG/DL (8.5-10.1); CARBON DIOXIDE LEVEL 27 MMOL/L (20-31); CHLORIDE LEVEL 107 MMOL/L (98-107); CREATININE FOR GFR 0.69 MG/DL (0.55-1.30); GLOMERULAR FILTRATION RATE > 90.0 (>58); POTASSIUM SERUM 3.8 MMOL/L (3.5-5.1); SODIUM LEVEL 142 MMOL/L (136-145)
[2024-09-01 17:00] VITALS: BP 155/96; O2SAT 100
== END ==
LOC: M INFU 15:32
PROVIDERS: ATTEND Internal Medicine Rheumatology
DX: M32.9 Systemic lupus erythematosus, unspecified (principal); Z88.8 Allergy status to other drugs, medicaments and biological substances; Z91.89 Other specified personal risk factors, not elsewhere classified
CPT/HCPCS: 36592; 80053; 85025; 96365; 96375; J1200

== ENCOUNTER 2024-09-29 12:46 | Outpatient (CLI) | payer OTHER ==
[~2024-09-29] VITALS: Ht 162.6 cm; Wt 86.4 kg
[~2024-09-29 12:46] MED LIST changes: -HEPARIN LOCK FLUSH 100 UNITS/ML 3 ML SYRINGE IV PRN; -HEPARIN LOCK FLUSH 100 UNITS/ML 3 ML SYRINGE IV SCH; -SODIUM CHLORIDE 0.9% INJ 10 ML SYR IV PRN; -SODIUM CHLORIDE 0.9% INJ 10 ML SYR IV SCH
[2024-09-29] MEDS: ACETAMINOPHEN 650MG PO PRIOR TO INFUSION PO ONE (13:16)
[2024-09-29] MEDS: diphenhydrAMINE 25MG IV PRIOR TO INFUSION IV ONE (13:16)
[2024-09-29 13:21] VITALS: BP 136/84; O2SAT 100
[2024-09-29 13:43] LABS: BASO # 0.0 10^3/uL (0.0-0.2); BASO % 0.6 % (0.0-1.0); EOS # 0.4 10^3/uL (0.0-0.5); EOS % 5.4 % (0.0-3.0); LYMPH # 2.6 10^3/uL (1.5-5.0); LYMPH % 36.4 % (24.0-44.0); MONO # 0.7 10^3/uL (0.0-0.8); MONO % 9.0 % (2.0-8.0); NEUTROPHILS # 3.5 10^3/uL (1.5-8.5); NEUTROPHILS % 48.2 % (36.0-66.0); PLATELET COUNT, AUTOMATED 212 10^3/uL (150-450)
[2024-09-29] MEDS: NS IV ONE (13:46)
[2024-09-29] MEDS: [UNRECOGNIZED DRUG - OTHER] IV ONE (13:46)
[2024-09-29 14:08] LABS: ALT/SGPT 17 U/L (7.0-40); AST/SGOT 22 U/L (<34); CALCIUM LEVEL 9.2 MG/DL (8.5-10.1); CARBON DIOXIDE LEVEL 25 MMOL/L (20-31); CHLORIDE LEVEL 103 MMOL/L (98-107); CREATININE FOR GFR 0.73 MG/DL (0.55-1.30); GLOMERULAR FILTRATION RATE > 90.0 (>58); POTASSIUM SERUM 3.9 MMOL/L (3.5-5.1); SODIUM LEVEL 140 MMOL/L (136-145)
[2024-09-29] MEDS ORDERED: HEPARIN LOCK FLUSH 100 UNITS/ML 3 ML SYRINGE IV PRN (14:20)
[2024-09-29] MEDS ORDERED: SODIUM CHLORIDE 0.9% INJ 10 ML SYR IV PRN (14:20)
[2024-09-29] MEDS: HEPARIN LOCK FLUSH 100 UNITS/ML 3 ML SYRINGE IV SCH (14:23)
[2024-09-29] MEDS: SODIUM CHLORIDE 0.9% INJ 10 ML SYR IV SCH (14:23)
[2024-09-29 14:30] VITALS: BP 128/84; O2SAT 99
== END 2024-09-29 14:30 | disposition home or self-care (01) ==
LOC: M INFU 12:46
PROVIDERS: ATTEND Internal Medicine Rheumatology
DX: M32.9 Systemic lupus erythematosus, unspecified (principal)
CPT/HCPCS: 36591; 80053; 85025; 96365; 96375; J1200; J1642

== ENCOUNTER 2024-10-28 16:16 | Outpatient (CLI) | payer OTHER ==
[~2024-10-28] VITALS: Ht 160 cm; Wt 86.3 kg
[~2024-10-28 16:16] MED LIST changes: -IBUP-1022 PO; +IBUP600T42 PO
[2024-10-28 16:23] VITALS: BP 132/75; O2SAT 98
[2024-10-28] MEDS: diphenhydrAMINE 50 MG/ML VIAL IV ONE (16:34)
[2024-10-28] MEDS: ACETAMINOPHEN 325 MG TAB PO ONE (16:34)
[2024-10-28] MEDS: NS IV ONE (16:43)
[2024-10-28] MEDS: [UNRECOGNIZED DRUG - OTHER] IV ONE (16:43)
[2024-10-28 16:46] LABS: BASO # 0.1 10^3/uL (0.0-0.2); BASO % 0.7 % (0.0-1.0); EOS # 0.4 10^3/uL (0.0-0.5); EOS % 4.8 % (0.0-3.0); LYMPH # 3.3 10^3/uL (1.5-5.0); LYMPH % 36.0 % (24.0-44.0); MONO # 0.7 10^3/uL (0.0-0.8); MONO % 8.0 % (2.0-8.0); NEUTROPHILS # 4.6 10^3/uL (1.5-8.5); NEUTROPHILS % 50.2 % (36.0-66.0); PLATELET COUNT, AUTOMATED 234 10^3/uL (150-450)
[2024-10-28] MEDS: SODIUM CHLORIDE 0.9% INJ 10 ML SYR IV SCH (17:17)
[2024-10-28] MEDS: HEPARIN LOCK FLUSH 100 UNITS/ML 3 ML SYRINGE IV SCH (17:17)
[2024-10-28 17:35] LABS: ALT/SGPT 15.0 U/L (7.0-40); AST/SGOT 25.0 U/L (<34); CALCIUM LEVEL 9.4 MG/DL (8.5-10.1); CARBON DIOXIDE LEVEL 24.0 MMOL/L (20-31); CHLORIDE LEVEL 107.0 MMOL/L (98-107); CREATININE FOR GFR 0.84 MG/DL (0.55-1.30); GLOMERULAR FILTRATION RATE 86.2 (>58); POTASSIUM SERUM 4.0 MMOL/L (3.5-5.1); SODIUM LEVEL 141.0 MMOL/L (136-145)
== END 2024-10-28 17:22 ==
LOC: M INFU 16:16
PROVIDERS: ATTEND Internal Medicine Rheumatology
DX: M32.9 Systemic lupus erythematosus, unspecified (principal); Z91.89 Other specified personal risk factors, not elsewhere classified
CPT/HCPCS: 36591; 80053; 85025; 96365; 96375; J1200; J1642

== ENCOUNTER 2024-11-25 16:08 | Outpatient (CLI) | payer OTHER ==
[~2024-11-25] VITALS: Ht 160 cm; Wt 86.0 kg
[2024-11-25 16:20] VITALS: BP 144/85; O2SAT 100
[2024-11-25] MEDS: diphenhydrAMINE 25MG IV PRIOR TO INFUSION IV ONE (16:35)
[2024-11-25] MEDS: ACETAMINOPHEN 650MG PO PRIOR TO INFUSION PO ONE (16:36)
[2024-11-25] MEDS: [UNRECOGNIZED DRUG - OTHER] IV ONE (16:56)
[2024-11-25] MEDS: NS IV ONE (16:56)
[2024-11-25 17:02] LABS: BASO # 0.1 10^3/uL (0.0-0.2); BASO % 0.7 % (0.0-1.0); EOS # 0.5 10^3/uL (0.0-0.5); EOS % 5.4 % (0.0-3.0); LYMPH # 3.1 10^3/uL (1.5-5.0); LYMPH % 35.4 % (24.0-44.0); MONO # 0.7 10^3/uL (0.0-0.8); MONO % 8.2 % (2.0-8.0); NEUTROPHILS # 4.4 10^3/uL (1.5-8.5); NEUTROPHILS % 50.0 % (36.0-66.0); PLATELET COUNT, AUTOMATED 251 10^3/uL (150-450)
[2024-11-25] MEDS: HEPARIN LOCK FLUSH 100 UNITS/ML 3 ML SYRINGE IV PRN (17:27)
[2024-11-25] MEDS: SODIUM CHLORIDE 0.9% INJ 10 ML SYR IV PRN (17:27)
[2024-11-25 17:28] LABS: ALT/SGPT 16 U/L (7.0-40); AST/SGOT 19 U/L (<34); CALCIUM LEVEL 8.9 MG/DL (8.5-10.1); CARBON DIOXIDE LEVEL 27 MMOL/L (20-31); CHLORIDE LEVEL 104 MMOL/L (98-107); CREATININE FOR GFR 0.70 MG/DL (0.55-1.30); GLOMERULAR FILTRATION RATE > 90.0 (>58); POTASSIUM SERUM 3.9 MMOL/L (3.5-5.1); SODIUM LEVEL 138 MMOL/L (136-145)
[2024-11-25 17:32] VITALS: BP 146/89; O2SAT 100
[2024-11-26] MEDS ORDERED: HEPARIN LOCK FLUSH 100 UNITS/ML 3 ML SYRINGE IV SCH (09:00)
[2024-11-26] MEDS ORDERED: SODIUM CHLORIDE 0.9% INJ 10 ML SYR IV SCH (09:00)
== END 2024-11-25 17:29 ==
LOC: M INFU 16:08
PROVIDERS: ATTEND Internal Medicine Rheumatology
DX: M32.9 Systemic lupus erythematosus, unspecified (principal)
CPT/HCPCS: 80053; 85025; 96365; 96375; 99195; J1200; J1642

== ENCOUNTER 2024-12-23 16:00 | Outpatient (CLI) | payer OTHER ==
[~2024-12-23] VITALS: Ht 162.6 cm; Wt 88.6 kg
[2024-12-23 16:10] VITALS: BP 118/64; O2SAT 99
[2024-12-23] MEDS: HEPARIN LOCK FLUSH 100 UNITS/ML 3 ML SYRINGE IV SCH (16:25)
[2024-12-23] MEDS: diphenhydrAMINE 50 MG/ML VIAL IV ONE (16:25)
[2024-12-23] MEDS: SODIUM CHLORIDE 0.9% INJ 10 ML SYR IV SCH (16:25)
[2024-12-23] MEDS: ACETAMINOPHEN 325 MG TAB PO ONE (16:26)
[2024-12-23 16:27] LABS: BASO # 0.0 10^3/uL (0.0-0.2); BASO % 0.5 % (0.0-1.0); EOS # 0.4 10^3/uL (0.0-0.5); EOS % 5.4 % (0.0-3.0); LYMPH # 3.6 10^3/uL (1.5-5.0); LYMPH % 43.6 % (24.0-44.0); MONO # 0.6 10^3/uL (0.0-0.8); MONO % 7.1 % (2.0-8.0); NEUTROPHILS # 3.5 10^3/uL (1.5-8.5); NEUTROPHILS % 43.3 % (36.0-66.0); PLATELET COUNT, AUTOMATED 239 10^3/uL (150-450)
[2024-12-23] MEDS ORDERED: SODIUM CHLORIDE 0.9% INJ 10 ML SYR IV ONE (16:30)
[2024-12-23] MEDS: [UNRECOGNIZED DRUG - OTHER] IV ONE (16:36)
[2024-12-23] MEDS: NS IV ONE (16:36)
[2024-12-23 17:04] LABS: ALT/SGPT 16 U/L (7.0-40); AST/SGOT 22 U/L (<34); CALCIUM LEVEL 8.8 MG/DL (8.5-10.1); CARBON DIOXIDE LEVEL 26 MMOL/L (20-31); CHLORIDE LEVEL 105 MMOL/L (98-107); CREATININE FOR GFR 0.73 MG/DL (0.55-1.30); GLOMERULAR FILTRATION RATE > 90.0 (>58); POTASSIUM SERUM 3.9 MMOL/L (3.5-5.1); SODIUM LEVEL 138 MMOL/L (136-145)
[2024-12-23 17:18] VITALS: BP 125/80; O2SAT 96
== END 2024-12-23 17:18 ==
LOC: M INFU 16:00
PROVIDERS: ATTEND Internal Medicine Rheumatology
DX: M32.9 Systemic lupus erythematosus, unspecified (principal)
CPT/HCPCS: 80053; 85025; 96365; 96375; J1200; J1642

== ENCOUNTER → 2025-01-21 | Outpatient (REF) | payer OTHER ==
[2025-01-21 15:34] LABS: BASO # 0.1 10^3/uL (0.0-0.2); BASO % 0.7 % (0.0-1.0); EOS # 0.4 10^3/uL (0.0-0.5); EOS % 5.2 % (0.0-3.0); LYMPH # 2.4 10^3/uL (1.5-5.0); LYMPH % 33.7 % (24.0-44.0); MONO # 0.4 10^3/uL (0.0-0.8); MONO % 6.0 % (2.0-8.0); NEUTROPHILS # 3.8 10^3/uL (1.5-8.5); NEUTROPHILS % 54.0 % (36.0-66.0); PLATELET COUNT, AUTOMATED 272 10^3/uL (150-450)
[2025-01-21 15:42] LABS: C REACTIVE PROTEIN QUANTITATIV < 0.50 MG/DL (<1.0)
[2025-01-21 15:43] LABS: ALT/SGPT 20 U/L (7.0-40); AST/SGOT 23 U/L (<34); CALCIUM LEVEL 9.0 MG/DL (8.5-10.1); CARBON DIOXIDE LEVEL 27 MMOL/L (20-31); CHLORIDE LEVEL 104 MMOL/L (98-107); CREATININE FOR GFR 0.75 MG/DL (0.55-1.30); GLOMERULAR FILTRATION RATE > 90.0 (>58); POTASSIUM SERUM 4.3 MMOL/L (3.5-5.1); SODIUM LEVEL 143 MMOL/L (136-145)
[2025-01-21 15:44] LABS: COMPLEMENT C4 43.4 MG/DL (12-36)
[2025-01-21 15:50] LABS: APPEARANCE, URINE CLEAR (CLEAR); BACTERIA, URINE AUTO 1+ (NEGATIVE); BILIRUBIN, URINE AUTO NEGATIVE (NEGATIVE); BLOOD, URINE BLOOD NEGATIVE (NEGATIVE); GLUCOSE, URINE (UA) AUTO NEGATIVE (NEGATIVE); KETONE, URINE AUTO NEGATIVE (NEGATIVE); LEUKOCYTE ESTERASE, URINE AUTO NEGATIVE (NEGATIVE); NITRITE, URINE AUTO NEGATIVE (NEGATIVE); PROTEIN, URINE AUTO NEGATIVE (NEGATIVE); RBC, URINE AUTO 0 /HPF (0-3); SPECIFIC GRAVITY URINE AUTO 1.005 (1.002-1.035); SQUAMOUS EPITHELIAL CELL UR AU 0 /HPF (0-6); UROBILINOGEN, URINE AUTO 0.2 mg/dL (0.0-2.0); WBC, URINE AUTO 0 /HPF (0-3)
[2025-01-21 16:00] LABS: TOTAL PROTEIN,RANDOM URINE 16.8 MG/DL (0.0-14.0)
[2025-01-21 16:18] LABS: HEPATITIS C VIRUS ABY INDEX < 0.02 INDEX (<0.8)
[2025-01-24 10:42] LABS: HEPATITIS B CORE ANTIBODY IGG NON-REACTIVE (NON-REACTIVE)
[2025-01-25 19:48] LABS: COMPLEMENT TOTAL (CH50) 41 U/mL (31-60)
[2025-01-26 01:31] LABS: PTT-LA 33 sec (<=40)
== END ==
LOC: M SFHCRHEU 09:10
PROVIDERS: ATTEND Internal Medicine Rheumatology
DX: M32.13 Lung involvement in systemic lupus erythematosus (principal)